=== PATIENT | female | born 1995 | race Caucasian/White ===

== ENCOUNTER → 2020-04-29 16:37 | Outpatient (CLI) | payer OTHER, MEDICAID, SELFPAY ==
[2020-05-01 00:56] LABS: COVID19 Sendout Not Detected (Not Detect)
== END ==
PROVIDERS: PCP Family Medicine; Visit Provider Physician Assistant
DX: Z11.59 Encounter for screening for other viral diseases (principal)
CPT/HCPCS: 87635

== ENCOUNTER → 2020-06-14 12:05 | Outpatient (CLI) | payer OTHER, MEDICAID, SELFPAY ==
--- NOTE | 2020-06-14 | DI.US.S_ITS ---
PROCEDURE: US PELVIC COMPLETE INDICATIONS: PAIN; HX PCOS TECHNIQUE: Real-time scanning was performed of the pelvic organs, with image documentation. Additional endovaginal scanning was necessary due to incomplete visualization of the adnexal and endometrial structures by transabdominal scanning. COMPARISON: None. FINDINGS: Transabdominal scanning: Limited scanning through the kidneys shows no hydronephrosis. No pathologic free abdominal or pelvic fluid. Endovaginal scanning: Uterus: Uterus is normal in size at 7.7 x 4.0 x 4.9 cm. The endometrium measures 21 mm in combined thickness. Ovaries: Right ovary measures 3.7 x 1.9 x 2.1 cm and the left 3.5 x 4.4 x 4.3 cm. There are 2 thick wall complex left ovarian cysts largest measuring 2.4 x 1.5 x 2.5 cm and the smaller 1.6 x 1.2 x 2.1 cm. IMPRESSION: 1. Endometrial complex is thickened measuring up to 21 mm. Short-term follow-up pelvic ultrasound in 6-12 weeks is recommended to assess for interval thinning. 2. Probable hemorrhagic cyst involving the left ovary which also can be reassessed on follow-up examination. Dictated by: Pelon Candelaria [facility] Interpreted: Shilpa Guzmán MD on 06/14/2020 at 15:03 Approved by: Shilpa Guzmán M.D. on 06/14/2020 at 15:30
== END ==
PROVIDERS: PCP Family Medicine; Referring Provider Physician Assistant; Visit Provider Physician Assistant
DX: E28.2 Polycystic ovarian syndrome (principal); N94.6 Dysmenorrhea, unspecified; R93.89 Abnormal findings on diagnostic imaging of other specified body structures
CPT/HCPCS: 76830; 76856

== ENCOUNTER 2020-06-17 16:29 | Observation (INO) | payer OTHER, MEDICAID, SELFPAY ==
[2020-06-17] VITALS (8 sets, daily range): BP systolic 102–134; BP diastolic 50–79; PULSE 70–101; RESP 16; TEMP 36.2–36.4; O2SAT 96–98; BMI 30.2
--- NOTE | 2020-06-17 18:11 | DI.US.S_ITS ---
PROCEDURE: US PELVIC COMPLETE INDICATIONS: POSITIVE HCG; BLEEDING, PAIN TECHNIQUE: Real-time scanning was performed of the pelvic organs, with image documentation. Additional endovaginal scanning was necessary due to incomplete visualization of the adnexal and endometrial structures by transabdominal scanning. COMPARISON: [facility], US, US PELVIC COMPLETE, 06/14/2020, 12:28. FINDINGS: Transabdominal scanning: Limited scanning through the kidneys shows no hydronephrosis. No pathologic free abdominal or pelvic fluid. No endometrial mass is seen. No intrauterine gestational sac is noted. Endovaginal scanning: Uterus: Uterus is normal in size at 8.4 x 3.7 x 4.7 cm. The endometrium measures 9.3 mm in combined thickness. Ovaries: Right ovary measures 3.1 x 2 x 2.6 cm in size. Left ovary measures 6.2 x 3.8 x 3.7 cm in size. Previously described thick-walled complex left ovarian cysts not appears as 1 complex cystic lesion and measures 5.8 x 2.6 x 3.3 cm in size. No internal vascularity is noted. Minimal amount of free fluid is seen adjacent to left ovary. IMPRESSION: 1. No evidence of intrauterine gestation. No endometrial mass or fluid. 2. 5.8 x 2.6 x 3.3 cm complex hypoechoic structure within/adjacent to left ovary with trace amount of adjacent fluid. No internal vascularity is seen. Finding could represent large blood clot. Ectopic is not definitively excluded. Follow-up with beta hCG levels and follow-up ultrasound is recommended. Dictated by: Ismael Hobbs M.D. on 06/17/2020 at 19:39 Approved by: Ismael Hobbs M.D. on 06/17/2020 at 19:44
[2020-06-17 18:14] LABS: Amorphous Sediment Urine 1+; Bacteria Urine Occasional (0-1); Culture Indicated Urine Cult Not Indicated; Mucus Urine 2+ (Negative); RBC Urine 1-5/HPF (0-5/HPF); Squamous Epithelial Cell Urine 1-5 /HPF (0-5/HPF); WBC Urine 1-5/HPF (0-5/HPF)
[2020-06-17 18:33] LABS: Add Manual Diff / Slide Review NO; Basophils Absolute Auto 100 /uL (0-100); Basophils Percent Auto 0.7 % (0-2); Eosinophils Absolute Auto 300 /uL (0-450); Eosinophils Percent Auto 2.3 % (2-4); Hematocrit 39.2 % (36-46); Hemoglobin 13.1 g/dL (12.0-16.0); Lymphocytes Absolute Auto 3100 /uL (1100-4500); Lymphocytes Percent Auto 20.8 % (25-40); Mean Corpuscular HGB Conc 33.3 % (30-36); Mean Corpuscular Hemoglobin 30.6 PG (26-34); Mean Corpuscular Volume 92.1 fL (80-100); Monocytes Absolute Auto 800 /uL (0-900); Monocytes Percent Auto 5.6 % (3-14); Neutrophils Absolute Auto 10700 /uL (1500-7000); Neutrophils Percent Auto 70.6 % (50-75); Platelet Count 328 X10^3/uL (150-400); Red Blood Cell Count 4.26 X10^6/uL (4.0-5.2); Red Cell Distribution Width 12.8 % (11.6-14.8); White Blood Cell Count 15.2 X10^3/uL (4.5-11.0)
[2020-06-17 18:55] LABS: Prothrombin Time 11.7 SECONDS (10.1-12.7)
--- NOTE | 2020-06-17 18:56 | ED_ITS ---
HPI - <ARAVIND Sarabia - Last Filed: 06/17/20 20:42> General Chief complaint: Abdominal Pain Stated complaint: pelvic pain Time Seen by Provider: 06/17/20 17:50 Source: patient Mode of arrival: Ambulatory Limitations: no limitations History of Present Illness HPI Narrative: This is a 24 year old female, smoker, who has past medical history significant for PCOS presents to ED with chief complain of heavy vaginal bleeding and cramping discomfort. Patient was evaluated by her primary care clinic at [facility] on 06/02/2020 where had negative urine test and followed up with ultrasound at [facility] 3 days ago. Her primary care provider BENITA Marcus called to check up on the patient and informed that the urine lining appears to be thick and she may have ruptured ovarian cyst. Patient reports she had missed menstruation in May. Normal LMP was on 04/12/2020 and had vaginal bleeding started since 06/08/2020. Patient reports has been having cramping discomfort since 06/02/2020. Patient reports vaginal bleeding has been very heavy today and passed 2 large dollar size clots at 10:30 a.m. and 1:00 p.m. today. Patient reports has been changing tampon/pad every 30 minutes to an hour which was saturated. Patient denies chest pain, dyspnea, lighthead edness. Patient denies history of STIs or . Patient had negative home test at the end of May. Had another test which was positive after hours. When she was evaluated at the clinic on 06/02/2020, she was told test was negative. Patient has been taking ibuprofen for pain last 1 week. Patient drinks alcohol beverage socially smokes pot. Date of Last Menstrual Period: 06/08/20 Patient : Yes Related Data Home Medications Medication Instructions Recorded Confirmed No Known Home Medications 04/29/20 06/17/20 Allergies Allergy/AdvReac Type Severity Reaction Status Date / Time cefaclor [From [facility]] AdvReac hallucinati Verified 06/17/20 19:14 ons Review of Systems <ARAVIND Sarabia - Last Filed: 06/17/20 20:42> Review of Systems Narrative: General: Denies fever, chills, fatigue, malaise, sweats. HEENT: Denies sinus pain, ear pain, sore throat, difficulty swallowing, dizziness. Respiratory: Denies dyspnea, cough, wheezing, hemoptysis, sputum. Cardiovascular: Denies chest pain, palpitations, orthopnea, edema. Gastrointestinal: Denies nausea, vomiting, abdominal pain, diarrhea, constipation, melena. : See HPI Musculoskeletal: Denies weakness, joint pain or bony pain. Skin: Denies rash, skin lesions, or other. Neurologic: Denies weakness, headache, numbness, change in speech, confusion, seizures, incoordination. Psychiatric: No concerning psychosocial issues. 12-point review of systems is negative except for those stated above. PMFSH - <[facility] - Last Filed: 06/17/20 20:42> Past Medical History Medical history: Reports kidney stones Surgical history: Reports no surgical history [employer] history: Reports PCOS Date of Last Menstrual Period: 06/08/20 Patient : Yes Exam <[facility] Rodriguez[facility] - Last Filed: 06/17/20 20:42> Narrative Exam Narrative: GEN: Alert, oriented x 3, well appearing and nourished, and in no acute distress. Head: Normal cephalic, atraumatic. No scalp or temporal tenderness, palpable mass or rash. EYES: Pupils are equal, round, and reactive to light and accommodation. Extraocular muscles are intact bilaterally. There is no subconjunctival hemorrhage, exudate and sclera non-icteric. ENT: Hearing grossly intact. Airway patent. Neck: Trachea in midline. No JVD, non-tender without lymphadenopathy. No masses or thyroid megaly. Supple, non-tender and no meningeal signs. CARDIAC: Normal regular rate and rhythm without murmurs, gallops, or rubs. No chest wall tenderness. No peripheral edema, cyanosis or pallor. Capillary refill is less than 2 seconds. RESPIRATORY: Lungs are clear to auscultate bilaterally. No cough, wheezes, rales, or rhonchi. No stridor, respiratory distress, increase work of breathing, or accessary muscle used. ABD: Abdomen soft and non-distended. Left lower quadrant pain to palpate. No guarding or rebound tenderness to palpate. Bowel sounds are normal in all 4 quadrants. There is no palpable masses or organomegaly. EXT: Full painless ROM of all extremities with no loss of sensation, strength, effusion or edema. SKIN: Warm, dry, normal color for patient. No erythema, lesions or rash over visible areas. BACK: Nontender without deformity or crepitance. No flank tenderness. NEUROLOGICAL: Alert and oriented to place, time and person. Sensation and motor function intact bilaterally. No facial droops, dysphasia. PSYCHIATRIC: Good judgement and reason, without hallucinations, abnormal affect or abnormal behaviors during the examination. Patient is not suicidal. Initial Vital Signs Initial Vital Signs: Vital Signs Temperature 97.6 F 06/17/20 16:48 Pulse Rate 101 H 06/17/20 16:48 Respiratory Rate 16 06/17/20 16:48 Blood Pressure 134/79 06/17/20 16:48 Pulse Oximetry 98 06/17/20 16:48 External Female Exam: normal external appearance Speculum Exam - Vagina: normal appearance of the vagina, no lacerations, no lesions, vaginal bleeding (Dark color vaginal bleeding) and No tissue present in vagina Speculum Exam - Cervix: normal appearance of the cervix, closed and no masses Bimanual Exam- Vagina & Uterus: no cervical motion tenderness Bimanual Exam- Adnexa, other: tender on the left OB/External & Speculum: no tissue noted in vagina and vaginal bleeding (Dark color vaginal bleeding) <Liam Diaz DO - Last Filed: 06/18/20 04:24> Initial Vital Signs Initial Vital Signs: Vital Signs Temperature 97.6 F 06/17/20 16:48 Pulse Rate 101 H 06/17/20 16:48 Respiratory Rate 16 06/17/20 16:48 Blood Pressure 134/79 06/17/20 16:48 Pulse Oximetry 98 06/17/20 16:48 Scores <ARAVIND Sarabia - Last Filed: 06/17/20 20:42> GCS Maxine coma scale eye opening: Spontaneous [place] coma scale verbal response: Orientated [place] coma scale motor response: Obey commands [place] coma scale total score: 15 qSOFA Altered Mental Status (GCS <15): No Respiratory rate greater than/equal to 22: No Systolic blood pressure less than or equal to 100: No qSOFA Total: 0 0-1 Not High Risk 1-3 High risk Course <ARAVIND Sarabia - Last Filed: 06/17/20 20:42> Orders Ordered: ED Orders 06/17/20 20:39 COVID19 Stat Acetaminophen (Acetaminophen 325 Mg Tablet) 650 mg PO Q6HR PRN PRN Reason: Fever/Mild Pain (1-3) Naloxone HCl (Naloxone 0.4 Mg/Ml Vial) 0.2 mg IV Q2MIN PRN PRN Reason: Opiate Reversal Ondansetron HCl (Ondansetron 4 Mg/2 Ml Inj) 4 mg IV Q8HR PRN PRN Reason: Nausea And Vomiting Oxycodone/Acetaminophen (Oxycodone/Acetaminophen 5/325 Tablet) 1 tab PO Q4HR PRN PRN Reason: Pain, Moderate (4-6) Last Admin: 06/18/20 01:44 Dose: 1 tab Documented by: Admin: 06/17/20 22:53 Dose: 1 tab Documented by: VINAY Sodium Chloride (Sodium Chloride 0.9% Flush) 10 ml IV BID LYNETTE Sodium Chloride (Sodium Chloride 0.9% Flush) 10 ml IV PRN PRN PRN Reason: Flush Discontinued Medications Hydromorphone HCl (Hydromorphone 0.5 Mg Inj) 0.5 mg IV NOW ONE Stop: 06/17/20 19:13 Last Admin: 06/17/20 19:18 Dose: 0.5 mg Documented by: MELCHOR Ondansetron HCl (Ondansetron 4 Mg/2 Ml Inj) 4 mg IV NOW ONE Stop: 06/17/20 19:13 Last Admin: 06/17/20 19:18 Dose: 4 mg Documented by: MELCHOR Reevaluation(s) Reevaluation #1: Patient reports pain moderately improved and rates as 2 to 3/10 in left lower quadrant intermittent. Time: 20:16 Consultations Consultation #1: Dr. Purdy consulted concerned for ectopic . Findings from physical exam, vital signs, labs, ultrasound results shared with Dr. Purdy. Waiting to hear back from Dr. Purdy after reviewing findings with Dr. Lr. Time: 20:15 Consultation #2: Dr. Purdy called back to inform to keep the patient under observation to monitor hemodynamically and to repeat blood test tomorrow for possible ectopic considering patient lives in [facility]. Time: 20:24 Vital Signs Vital signs: Vital Signs - 8 hr 06/17/20 20:30 Pulse Rate 73 Blood Pressure 104/56 L Pulse Oximetry 98 <Liam Diaz DO - Last Filed: 06/18/20 04:24> Orders Ordered: ED Orders 06/17/20 20:39 COVID19 Stat Acetaminophen (Acetaminophen 325 Mg Tablet) 650 mg PO Q6HR PRN PRN Reason: Fever/Mild Pain (1-3) Naloxone HCl (Naloxone 0.4 Mg/Ml Vial) 0.2 mg IV Q2MIN PRN PRN Reason: Opiate Reversal Ondansetron HCl (Ondansetron 4 Mg/2 Ml Inj) 4 mg IV Q8HR PRN PRN Reason: Nausea And Vomiting Oxycodone/Acetaminophen (Oxycodone/Acetaminophen 5/325 Tablet) 1 tab PO Q4HR PRN PRN Reason: Pain, Moderate (4-6) Last Admin: 06/18/20 01:44 Dose: 1 tab Documented by: Admin: 06/17/20 22:53 Dose: 1 tab Documented by: VINAY Sodium Chloride (Sodium Chloride 0.9% Flush) 10 ml IV BID LYNETTE Sodium Chloride (Sodium Chloride 0.9% Flush) 10 ml IV PRN PRN PRN Reason: Flush Discontinued Medications Hydromorphone HCl (Hydromorphone 0.5 Mg Inj) 0.5 mg IV NOW ONE Stop: 06/17/20 19:13 Last Admin: 06/17/20 19:18 Dose: 0.5 mg Documented by: MELCHOR Ondansetron HCl (Ondansetron 4 Mg/2 Ml Inj) 4 mg IV NOW ONE Stop: 06/17/20 19:13 Last Admin: 06/17/20 19:18 Dose: 4 mg Documented by: MELCHOR Vital Signs Vital signs: Vital Signs - 8 hr 06/17/20 20:30 Pulse Rate 73 Blood Pressure 104/56 L Pulse Oximetry 98 MDM - OB/Uterine Contractions <ARAVIND Sarabia - Last Filed: 06/17/20 20:42> Differential Diagnosis Differential diagnosis: Likely other (Ovarian cyst, ectopic , PID, ovarian torsion) Medical Records Attestation: I reviewed the patient's medical records. Lab Data Attestation: I reviewed the patient's lab results. Result diagrams: 06/17/20 18:22 06/17/20 18:22 Labs: Lab Results 06/17/20 06/17/20 06/17/20 Range/Units 17:50 18:22 18:22 WBC 15.2 H (4.5-11.0) X10^3/uL RBC 4.26 (4.0-5.2) X10^6/uL Hgb 13.1 (12.0-16.0) g/dL Hct 39.2 (36-46) % MCV 92.1 (80-100) fL MCH 30.6 (26-34) PG MCHC 33.3 (30-36) % RDW 12.8 (11.6-14.8) % Plt Count 328 (150-400) X10^3/uL Neut % (Auto) 70.6 (50-75) % Lymph % (Auto) 20.8 L (25-40) % [place] % (Auto) 5.6 (3-14) % Eos % (Auto) 2.3 (2-4) % Baso % (Auto) 0.7 (0-2) % Neut # (Auto) 10396 H (9897-7701) /uL Lymph # (Auto) 3100 (8200-6888) /uL [place] # (Auto) 800 (0-900) /uL Eos # (Auto) 300 (0-450) /uL Baso # (Auto) 100 (0-100) /uL PT (10.1-12.7) SECONDS INR (0.9-1.3) APTT (26.4-36.2) SECONDS Sodium 138 (137-145) mmol/L Potassium 3.9 (3.4-5.1) mmol/L Chloride 107 (98-107) mmol/L Carbon Dioxide 28 (22-32) mmol/L BUN 15 (7-17) mg/dL Creatinine 0.74 (0.52-1.04) mg/dL Estimated GFR > 60.0 (>60) mL/min BUN/Creatinine Ratio 20.3 (6-22) Glucose 109 H (70-100) mg/dL Calcium 9.3 (8.4-10.2) mg/dL Total Bilirubin 0.3 (0.2-1.3) mg/dL AST 25 (14-36) IU/L ALT 17 (<35) IU/L Alkaline Phosphatase 47 (38-126) U/L Total Protein 6.9 (6.3-8.2) g/dL Albumin 4.2 (3.5-5.0) g/dL Globulin 2.7 (1.7-4.1) g/dL Albumin/Globulin Ratio 1.6 (1.0-2.8) HCG, Quant 953.5 mIU/mL Urine RBC 1-5/hpf (0-5/HPF) Urine WBC 1-5/hpf (0-5/HPF) Ur Squamous Epith Cells 1-5 /hpf (0-5/HPF) Amorphous Sediment 1+ Urine Bacteria Occasional (0-1) (None) Urine Mucus 2+ H (Negative) Ur Culture Indicated? Cult not indicated Blood Type 06/17/20 06/17/20 Range/Units 18:22 18:22 WBC (4.5-11.0) X10^3/uL RBC (4.0-5.2) X10^6/uL Hgb (12.0-16.0) g/dL Hct (36-46) % MCV (80-100) fL MCH (26-34) PG MCHC (30-36) % RDW (11.6-14.8) % Plt Count (150-400) X10^3/uL Neut % (Auto) (50-75) % Lymph % (Auto) (25-40) % [place] % (Auto) (3-14) % Eos % (Auto) (2-4) % Baso % (Auto) (0-2) % Neut # (Auto) (7965-8333) /uL Lymph # (Auto) (0181-5359) /uL [place] # (Auto) (0-900) /uL Eos # (Auto) (0-450) /uL Baso # (Auto) (0-100) /uL PT 11.7 (10.1-12.7) SECONDS INR 1.0 (0.9-1.3) APTT 28 (26.4-36.2) SECONDS Sodium (137-145) mmol/L Potassium (3.4-5.1) mmol/L Chloride (98-107) mmol/L Carbon Dioxide (22-32) mmol/L BUN (7-17) mg/dL Creatinine (0.52-1.04) mg/dL Estimated GFR (>60) mL/min BUN/Creatinine Ratio (6-22) Glucose (70-100) mg/dL Calcium (8.4-10.2) mg/dL Total Bilirubin (0.2-1.3) mg/dL AST (14-36) IU/L ALT (<35) IU/L Alkaline Phosphatase (38-126) U/L Total Protein (6.3-8.2) g/dL Albumin (3.5-5.0) g/dL Globulin (1.7-4.1) g/dL Albumin/Globulin Ratio (1.0-2.8) HCG, Quant mIU/mL Urine RBC (0-5/HPF) Urine WBC (0-5/HPF) Ur Squamous Epith Cells (0-5/HPF) Amorphous Sediment Urine Bacteria (None) Urine Mucus (Negative) Ur Culture Indicated? Blood Type B Positive Point of Care Testing Test Results Positive Urine Dip Bedside Urine Glucose Negative Bedside Urine Bilirubin + 1 Bedside Urine Ketone +/- 5 Urine Specific [place] 1.030 Bedside Urine Occult Blood +++ Bedside Urine pH 6 Bedside Urine Protein + 30 Bedside Urine Urobilinogen +/- 1mg Bedside Urine Nitrite - Negative Bedside Urine Leukocytes - Negative Esterase Imaging Data US - OB: Radiologist's Impression: [address] [id number] ReportSigned Patient: Linda Garcia [facility]#: [id number]: 1995Acct:[id number]/Sex: 24 / FDate of Service: 06/17/20Loc: EDAccession Number: [id number] Procedure: US pelvic complete Ordering Provider: Abhilash Marquez PROCEDURE: US PELVIC COMPLETE INDICATIONS: POSITIVE HCG; BLEEDING, PAIN TECHNIQUE: Real-time scanning was performed of the pelvic organs, with image documentation. Additional endovaginal scanning was necessary due to incomplete visualization of the adnexal and endometrial structures by transabdominal scanning. COMPARISON: [facility], US PELVIC COMPLETE, 06/14/2020, 12:28. FINDINGS: Transabdominal scanning: Limited scanning through the kidneys shows no hydronephrosis. No pathologic free abdominal or pelvic fluid. No endometrial mass is seen. No intrauterine gestational sac is noted. Endovaginal scanning: Uterus: Uterus is normal in size at 8.4 x 3.7 x 4.7 cm. The endometrium measures 9.3 mm in combined thickness. Ovaries: Right ovary measures 3.1 x 2 x 2.6 cm in size. Left ovary measures 6.2 x 3.8 x 3.7 cm in size. Previously described thick-walled complex left ovarian cysts not appears as 1 complex cystic lesion and measures 5.8 x 2.6 x 3.3 cm in size. No internal vascularity is noted. Minimal amount of free fluid is seen adjacent to left ovary. IMPRESSION: 1. No evidence of intrauterine gestation. No endometrial mass or fluid. 2. 5.8 x 2.6 x 3.3 cm complex hypoechoic structure within/adjacent to left ovary with trace amount of adjacent fluid. No internal vascularity is seen. Finding could represent large blood clot. Ectopic is not definitively excluded. Follow-up with beta hCG levels and follow-up ultrasound is recommended. Dictated by: Ismael Hobbs M.D. on 06/17/2020 at 19:39 Approved by: Ismael Hobbs M.D. on 06/17/2020 at 19:44 MDM Narrative Medical decision making narrative: This is a 24-year-old female who presents to ED with left lower quadrant cramping pain and heavy vaginal bleeding with positive urine test in ED. patient reports normal LMP was 04/12/2020 and had started menstruation on 06/08/2020 which became heavy with clots today. Patient has been changing regular absorption tampon every 30 minutes to 1 hour today and had 2 large clots earlier today. Patient denies chest pain, dyspnea, lightheadedness, fever, chills, vomiting. She had intermittent nausea. No signs of UTI with negative urine nitrites and leukoesterase. There are large am ount of blood shown in urine. Physical exam was tender to palpate in left lower quadrant without cervical motion tenderness and dark blood in vaginal vault. Within normal limits of vital signs of heart rate in 80s and normal tensive. Unclear reasons for elevated WBC to 15.2. Ultrasound was repeated tonight. It shows slightly increased left ovary from 2 days ago and measures as 6.2 x 3.8 x 3.7 cm today. The left ovary 2 days ago measured as 3.5 x 4.4 x 4.3 cm and 2 thick wall complex left ovarian cysts. Endometrium thickness measures 9.3 mm in combined thickness today from 21 mm 2 days ago. There is trace amount of [place] fluid in left ovary. No evidence of IUP at this time. Today's ultrasound findings concerned for ectopic or large blood clot. Dr. Purdy consulted over the phone and she kindly accepted patient's care under observation to monitor overnight with repeat blood tests tomorrow to rule out ectopic . COVID test has been ordered and pending. <Liam Diaz DO - Last Filed: 06/18/20 04:24> Lab Data Labs: Lab Results 06/17/20 06/17/20 06/17/20 Range/Units 17:50 18:22 18:22 WBC 15.2 H (4.5-11.0) X10^3/uL RBC 4.26 (4.0-5.2) X10^6/uL Hgb 13.1 (12.0-16.0) g/dL Hct 39.2 (36-46) % MCV 92.1 (80-100) fL MCH 30.6 (26-34) PG MCHC 33.3 (30-36) % RDW 12.8 (11.6-14.8) % Plt Count 328 (150-400) X10^3/uL Neut % (Auto) 70.6 (50-75) % Lymph % (Auto) 20.8 L (25-40) % [place] % (Auto) 5.6 (3-14) % Eos % (Auto) 2.3 (2-4) % Baso % (Auto) 0.7 (0-2) % Neut # (Auto) 64570 H (7715-1981) /uL Lymph # (Auto) 3100 (0164-5088) /uL [place] # (Auto) 800 (0-900) /uL Eos # (Auto) 300 (0-450) /uL Baso # (Auto) 100 (0-100) /uL PT (10.1-12.7) SECONDS INR (0.9-1.3) APTT (26.4-36.2) SECONDS Sodium 138 (137-145) mmol/L Potassium 3.9 (3.4-5.1) mmol/L Chloride 107 (98-107) mmol/L Carbon Dioxide 28 (22-32) mmol/L BUN 15 (7-17) mg/dL Creatinine 0.74 (0.52-1.04) mg/dL Estimated GFR > 60.0 (>60) mL/min BUN/Creatinine Ratio 20.3 (6-22) Glucose 109 H (70-100) mg/dL Calcium 9.3 (8.4-10.2) mg/dL Total Bilirubin 0.3 (0.2-1.3) mg/dL AST 25 (14-36) IU/L ALT 17 (<35) IU/L Alkaline Phosphatase 47 (38-126) U/L Total Protein 6.9 (6.3-8.2) g/dL Albumin 4.2 (3.5-5.0) g/dL Globulin 2.7 (1.7-4.1) g/dL Albumin/Globulin Ratio 1.6 (1.0-2.8) HCG, Quant 953.5 mIU/mL Urine RBC 1-5/hpf (0-5/HPF) Urine WBC 1-5/hpf (0-5/HPF) Ur Squamous Epith Cells 1-5 /hpf (0-5/HPF) Amorphous Sediment 1+ Urine Bacteria Occasional (0-1) (None) Urine Mucus 2+ H (Negative) Ur Culture Indicated? Cult not indicated Blood Type 06/17/20 06/17/20 Range/Units 18:22 18:22 WBC (4.5-11.0) X10^3/uL RBC (4.0-5.2) X10^6/uL Hgb (12.0-16.0) g/dL Hct (36-46) % MCV (80-100) fL MCH (26-34) PG MCHC (30-36) % RDW (11.6-14.8) % Plt Count (150-400) X10^3/uL Neut % (Auto) (50-75) % Lymph % (Auto) (25-40) % [place] % (Auto) (3-14) % Eos % (Auto) (2-4) % Baso % (Auto) (0-2) % Neut # (Auto) (5363-4832) /uL Lymph # (Auto) (2559-6567) /uL [place] # (Auto) (0-900) /uL Eos # (Auto) (0-450) /uL Baso # (Auto) (0-100) /uL PT 11.7 (10.1-12.7) SECONDS INR 1.0 (0.9-1.3) APTT 28 (26.4-36.2) SECONDS Sodium (137-145) mmol/L Potassium (3.4-5.1) mmol/L Chloride (98-107) mmol/L Carbon Dioxide (22-32) mmol/L BUN (7-17) mg/dL Creatinine (0.52-1.04) mg/dL Estimated GFR (>60) mL/min BUN/Creatinine Ratio (6-22) Glucose (70-100) mg/dL Calcium (8.4-10.2) mg/dL Total Bilirubin (0.2-1.3) mg/dL AST (14-36) IU/L ALT (<35) IU/L Alkaline Phosphatase (38-126) U/L Total Protein (6.3-8.2) g/dL Albumin (3.5-5.0) g/dL Globulin (1.7-4.1) g/dL Albumin/Globulin Ratio (1.0-2.8) HCG, Quant mIU/mL Urine RBC (0-5/HPF) Urine WBC (0-5/HPF) Ur Squamous Epith Cells (0-5/HPF) Amorphous Sediment Urine Bacteria (None) Urine Mucus (Negative) Ur Culture Indicated? Blood Type B Positive Point of Care Testing Test Results Positive Urine Dip Bedside Urine Glucose Negative Bedside Urine Bilirubin + 1 Bedside Urine Ketone +/- 5 Urine Specific [place] 1.030 Bedside Urine Occult Blood +++ Bedside Urine pH 6 Bedside Urine Protein + 30 Bedside Urine Urobilinogen +/- 1mg Bedside Urine Nitrite - Negative Bedside Urine Leukocytes - Negative Esterase Discharge Plan Departure Patient Disposition: Admitted as Observation Clinical Impression: Abdominal pain during in first trimester, Vaginal bleeding in patient at less than 20 weeks gestation Admit Date/Time: 06/17/20 20:30 Admit Provider: Betsy Purdy <Liam Diaz DO - Last Filed: 06/18/20 04:24> Cosign ED Attending Cosignature Attestation: I was immediately available in the department for consultation. This documentation has been reviewed and I agree with assessment and plan. Supervised by Liam Diaz DO
[2020-06-17 18:57] LABS: PTT Partial Thromboplastin Tim 28 SECONDS (26.4-36.2)
[2020-06-17 18:59] LABS: Alanine Aminotransferase 17 IU/L (<35); Albumin 4.2 g/dL (3.5-5.0); Albumin Globulin Ratio 1.6 (1.0-2.8); Alkaline Phosphatase 47 U/L (38-126); Aspartate Aminotransferase 25 IU/L (14-36); BUN Creatinine Ratio 20.3 (6-22); Bilirubin Total 0.3 mg/dL (0.2-1.3); Blood Urea Nitrogen 15 mg/dL (7-17); Calcium 9.3 mg/dL (8.4-10.2); Carbon Dioxide 28 mmol/L (22-32); Chloride 107 mmol/L (98-107); Estimated Glomerular Filt Rate > 60.0 mL/min (>60); Globulin 2.7 g/dL (1.7-4.1); Glucose 109 mg/dL (70-100); HEMOLYSIS 18 (0-50); Potassium 3.9 mmol/L (3.4-5.1); Sodium 138 mmol/L (137-145); Total Protein 6.9 g/dL (6.3-8.2)
[2020-06-17 19:16] LABS: HCG Quantitative /Beta subunit 953.5 mIU/mL
[2020-06-17] MEDS: HYDROMORPHONE 0.5 MG INJ IV (19:18)
[2020-06-17] MEDS: ONDANSETRON 4 MG/2 ML INJ IV (19:18)
[2020-06-17 21:01] LABS: COVID19 -Nasal RAPID Negative (Negative)
[2020-06-17] MEDS: OXYCODONE/ACETAMINOPHEN 5/325 TABLET 1 TAB PO (22:53)
[2020-06-18] VITALS: BP 102/64; PULSE 69; RESP 16; TEMP 36.4
[2020-06-18] MEDS: OXYCODONE/ACETAMINOPHEN 5/325 TABLET 1 TAB PO ×4 (01:44→14:08)
[2020-06-18 05:58] VITALS: BP 108/53; PULSE 74; RESP 16; TEMP 37.1; O2SAT 98
[2020-06-18 06:23] LABS: HCG Quantitative /Beta subunit 1001.8 mIU/mL
--- NOTE | 2020-06-18 09:33 | DI.US.S_ITS ---
PROCEDURE: US PELVIC COMPLETE INDICATIONS: PRE-OP TECHNIQUE: Real-time scanning was performed of the pelvic organs, with image documentation. Additional endovaginal scanning was necessary due to incomplete visualization of the adnexal and endometrial structures by transabdominal scanning. COMPARISON: [facility], , US PELVIC COMPLETE, 06/17/2020, 18:45. FINDINGS: Transabdominal and endovaginal ultrasound was performed. The uterus is anteverted measuring 7.7 x 4.0 x 5.0 centimeters. Endometrial thickness is 1.2 millimeters. There is no evidence of an intrauterine . Uterine echotexture is normal. The cervix is within normal limits. The right ovary measures 3.7 x 2.1 x 2.2 centimeters. The left ovary measures 5.9 x 3.6 x 4.8 centimeters. There is an irregular solid mass measuring 6.3 x 2.8 x 3.1 centimeters compared to 5.8 x 2.6 x 3.3 centimeters on the prior ultrasound yesterday. Differential diagnosis includes a hematoma versus ectopic . There is minimally increasing free fluid in the anterior and posterior cul-de-sac. IMPRESSION: 1. Irregular solid mass, likely a hematoma and/or ectopic is relatively unchanged compared to yesterday. 2. Minimally increasing free fluid in the anterior and posterior cul-de-sac. Dictated by: Napoleon Ni M.D. on 06/18/2020 at 12:12 Approved by: Napoleon Ni M.D. on 06/18/2020 at 12:18
[2020-06-18] MEDS: ACETAMINOPHEN 325 MG TABLET 650 MG PO (09:45)
[2020-06-18] MEDS: SODIUM CHLORIDE 0.9% FLUSH 10 ML IV (09:46)
--- NOTE | 2020-06-18 09:57 | PM.HP.1 ---
History of Present Illness History of Present Illness Date Patient Seen: 06/18/20 Time Patient Seen: 09:58 Chief complaint: pelvic pain Narrative: Patient is a 24-year-old 1 para 0 who presented to the emergency department last evening with left lower quadrant pain and vaginal bleeding. Patient had a known . Initially she was thought to have a hemorrhagic corpus luteal cyst on the left, but last night's ultrasound was more worrisome for an ectopic . Patient History Medical History (Updated 06/18/20 @ 10:00 by Liyah Lr MD) PCOS (polycystic ovarian syndrome) Family & Social History Social History: household members friend(s) Prior Living Arrangements Apartment/Condo Safety & Behavioral: Feels Safe in Current Yes Environment Been Physically Hurt or No Threatened By a Person Suicidal Ideation Description None Suicide Plan Description No Plan Tobacco & Substance use: Smoking Status Current every day smoker alcohol intake current alcohol intake frequency a few times a month Substance Use Type marijuana Meds Home Medications and Allergies Home Medications Medication Instructions Recorded Confirmed Type No Known Home Medications 04/29/20 06/17/20 History Allergies Allergy/AdvReac Type Severity Reaction Status Date / Time cefaclor [From Ceclor] AdvReac hallucinati Verified 06/17/20 19:14 ons Exam Vital Signs (past 8 hours): - 06/18/20 05:58 Temperature 98.7 F Pulse Rate 74 Respiratory Rate 16 Blood Pressure 108/53 L Pulse Oximetry 98 Oxygen Delivery Method Room Air Oxygen Flow Rate 0 Narrative Exam Narrative: Generally: Patient is sitting up in bed, moderately distressed due to possibility of losing this Lungs: Clear to auscultation bilaterally Cardiovascular: Regular rate and rhythm Abdomen: Soft, slight guarding on the left side. No rebound tenderness. Pelvic exam: Deferred Ultrasound: 1. No evidence of intrauterine gestation. No endometrial mass or fluid. 2. 5.8 x 2.6 x 3.3 cm complex hypoechoic structure within/adjacent to left ovary with trace amount of adjacent fluid. No internal vascularity is seen. Finding could represent large blood clot. Ectopic is not definitively excluded. Objective Labs Result Diagrams: 06/17/20 18:22 06/17/20 18:22 Labs: Laboratory Results - last 24 hr 06/17/20 06/17/20 06/17/20 17:50 18:22 18:22 WBC 15.2 H RBC 4.26 Hgb 13.1 Hct 39.2 MCV 92.1 MCH 30.6 MCHC 33.3 RDW 12.8 Plt Count 328 Neut % (Auto) 70.6 Lymph % (Auto) 20.8 L [place] % (Auto) 5.6 Eos % (Auto) 2.3 Baso % (Auto) 0.7 Neut # (Auto) 19646 H Lymph # (Auto) 3100 [place] # (Auto) 800 Eos # (Auto) 300 Baso # (Auto) 100 PT INR APTT Sodium 138 Potassium 3.9 Chloride 107 Carbon Dioxide 28 BUN 15 Creatinine 0.74 Estimated GFR > 60.0 BUN/Creatinine Ratio 20.3 Glucose 109 H Calcium 9.3 Total Bilirubin 0.3 AST 25 ALT 17 Alkaline Phosphatase 47 Total Protein 6.9 Albumin 4.2 Globulin 2.7 Albumin/Globulin Ratio 1.6 HCG, Quant 953.5 Urine RBC 1-5/hpf Urine WBC 1-5/hpf Ur Squamous Epith Cells 1-5 /hpf Amorphous Sediment 1+ Urine Bacteria Occasional (0-1) Urine Mucus 2+ H Ur Culture Indicated? Cult not indicated COVID-19 PCR Blood Type 06/17/20 06/17/20 06/17/20 18:22 18:22 20:39 WBC RBC Hgb Hct MCV MCH MCHC RDW Plt Count Neut % (Auto) Lymph % (Auto) [place] % (Auto) Eos % (Auto) Baso % (Auto) Neut # (Auto) Lymph # (Auto) [place] # (Auto) Eos # (Auto) Baso # (Auto) PT 11.7 INR 1.0 APTT 28 Sodium Potassium Chloride Carbon Dioxide BUN Creatinine Estimated GFR BUN/Creatinine Ratio Glucose Calcium Total Bilirubin AST ALT Alkaline Phosphatase Total Protein Albumin Globulin Albumin/Globulin Ratio HCG, Quant Urine RBC Urine WBC Ur Squamous Epith Cells Amorphous Sediment Urine Bacteria Urine Mucus Ur Culture Indicated? COVID-19 PCR Negative Blood Type B Positive 06/18/20 05:05 WBC RBC Hgb Hct MCV MCH MCHC RDW Plt Count Neut % (Auto) Lymph % (Auto) [place] % (Auto) Eos % (Auto) Baso % (Auto) Neut # (Auto) Lymph # (Auto) [place] # (Auto) Eos # (Auto) Baso # (Auto) PT INR APTT Sodium Potassium Chloride Carbon Dioxide BUN Creatinine Estimated GFR BUN/Creatinine Ratio Glucose Calcium Total Bilirubin AST ALT Alkaline Phosphatase Total Protein Albumin Globulin Albumin/Globulin Ratio HCG, Quant 1001.8 Urine RBC Urine WBC Ur Squamous Epith Cells Amorphous Sediment Urine Bacteria Urine Mucus Ur Culture Indicated? COVID-19 PCR Blood Type Assessment & Plan Assessment & Plan narrative: Assessment: 24-year-old 1 para 0 with a possible left ectopic Highly desired History of PCOS Plan: Repeat ultrasound this morning Decide between surgery versus methotrexate if it appears to be an ectopic Time Spent With Patient Time with patient: 15-24 minutes Quality VTE Deep Vein Thrombosis/Pulmonary Embolism Present on Admission: No
--- NOTE | 2020-06-18 10:38 | CM.DANOTE ---
DCP; Case received, EMR reviewed. Briefly checked on patient, introduced self and role. Patient crying, stated, she did not want to talk at this time, she was on her phone. DCP assessment completed based on information available in EMR. Patient is a 24 year old female who admitted yesterday evening to the care of the hospitalist team. PCP: Dr. Norris. Payer: confirmed: [facility]/Medicaid. Patient came to the hospital via private vehicle secondary to having pelvic cramping, as well as increased vaginal bleeding. Patient had been evaluated on 06/02 at [facility] where she had a negative test. Patient had ultrasound ordered, and she is noted to have possible ectopic . Attempted to meet with patient, but teary, did not wish to talk now. According to notes, she resides on [address], she has a life partner named Isidro Sánchez, who has an [place] address. Patient is employed at [employer]. P: DCP to continue to follow, and will be available for any resources needed. Emi Devlin RN/Railroad Car Letterer
[2020-06-18 12:18] VITALS: BP 118/71; PULSE 90; RESP 17; TEMP 36.5; O2SAT 99
== END 2020-06-18 14:19 | disposition home or self-care (01) ==
LOC: ED 20:31 → AC 20:32
PROVIDERS: Admitting Provider Family Medicine; Emergency Provider Nurse Practitioner Family; PCP Family Medicine; Referring Provider Nurse Practitioner Family; Visit Provider Family Medicine
DX: O20.8 Other hemorrhage in early pregnancy (principal); R10.9 Unspecified abdominal pain; Z3A.01 Less than 8 weeks gestation of pregnancy; E28.2 Polycystic ovarian syndrome; F17.210 Nicotine dependence, cigarettes, uncomplicated; Z20.828 Contact with and (suspected) exposure to other viral communicable diseases
CPT/HCPCS: 36415; 76830; 76856; 80053; 81003; 81015; 81025; 84702; 85025; 85610; 85730; 86900; 86901; 87635; 96374; 96375; 99284; G0378; J1170; J2405

== ENCOUNTER → 2020-06-20 10:01 | Outpatient (CLI) | payer OTHER, MEDICAID, SELFPAY ==
[2020-06-17 21:13] VITALS: BMI 30.2
[2020-06-20 12:10] LABS: HCG Quantitative /Beta subunit 1206.1 mIU/mL
== END ==
PROVIDERS: PCP Family Medicine; Referring Provider Obstetrics & Gynecology; Visit Provider Obstetrics & Gynecology
DX: O00.90 Unspecified ectopic pregnancy without intrauterine pregnancy (principal)
CPT/HCPCS: 36415; 84702

== ENCOUNTER 2020-06-20 13:00 | Day surgery (SDC) | payer OTHER, MEDICAID, SELFPAY ==
[2020-06-17 21:13] VITALS: BMI 30.2
[2020-06-20] VITALS (18 sets, daily range): BP systolic 99–124; BP diastolic 48–73; PULSE 60–100; RESP 11–97; TEMP 36.2–36.9; O2SAT 14–100; BMI 30.9
--- NOTE | 2020-06-20 | PATH_ITS ---
[facility] Accession Number: [id number] . 01 Material submitted: . fallopian tube - LEFT FALLOPIAN TUBE WITH ECTOPIC . 02 Diagnosis: Left Fallopian Tube, Salpingectomy: Few chorionic villi present, consistent with ectopic gestation. Simple benign paratubal cysts. No evidence of neoplasm. MRV 06/22/2020 1309 Local . 02 Electronically signed: . Kartik Brown MD, PhD, Pathologist NPI- [id number] . 01 Gross description: . The specimen is received in formalin, labeled left fallopian tube with ectopic and consists of a 5.5 cm in length x up to 2.0 cm in diameter fallopian tube with a ruffin-pink smooth focally disrupted serosa and a 2.0 x 1.0 x 0.3 cm paratubal cyst. There is a 2.5 x 2.0 x 1.0 cm area of dilatation near the fimbria within the area of disruption. Sectioning reveals a ruffin-pink focally hemorrhagic mucosa and a lumen measuring up to 1.0 cm in diameter. There is no grossly visible chorionic villi within the area of dilation. Also, received are multiple red-brown fragments of clotted blood, measuring 6.0 x 5.0 x 3.0 cm in aggregate. Kitchenhand sections are submitted. . A1-A2 - Margin (en face) and area of dilation, entirely submitted. A3-A4 - Bisected fimbria. A5-A6 - Kitchenhand clotted blood. ([id number]) /[facility] 06/21/2020 1733 Local . 02 Pathologist provided ICD-10: O00.102 . 02 CPT . 495124 Performed at: 01 [facility] [address] [place] [address] [address], [place] [id number] MD Jose C Ramires MD Phone: [phone] Performed at: 02 [facility] [address] [place] [id number] MD Giselle Muhammad MD Phone: [phone]
[2020-06-20] MEDS: LACTATED RINGERS 1,000 ML 42 ML IV (13:45)
--- NOTE | 2020-06-20 14:25 | P.HP_ITS ---
History of Present Illness History of Present Illness Date Patient Seen: 06/20/20 Time Patient Seen: 14:25 [place] [facility] [place]: Patient is a 24-year-old 1 para 0 with a suspected left ectopic . Her beta HCG has gone from 950 on June 17, to 1000 on June 18. Today it has risen to 1200. She continues to have pain on the left side. Three ultrasounds have shown no intrauterine but increasing size of the mass in the left adnexa. Patient History Medical History (Updated 06/18/20 @ 10:00 by Liyah Lr MD) PCOS (polycystic ovarian syndrome) Family & Social History Social History: household members friend(s) Tobacco & Substance use: Smoking Status Current every day smoker alcohol intake current alcohol intake frequency a few times a month Substance Use Type marijuana Meds Home Medications and Allergies Home Medications Medication Instructions Recorded Confirmed Type No Known Home Medications 04/29/20 06/20/20 History oxycodone-acetaminophen [Percocet] 1 tab PO Q8H PRN #20 tab 06/18/20 06/20/20 Rx Allergies Allergy/AdvReac Type Severity Reaction Status Date / Time cefaclor [From Ceclor] AdvReac hallucinati Verified 06/20/20 13:34 ons Exam Vital Signs (past 8 hours): - 06/20/20 13:30 Temperature 98.1 F Pulse Rate 75 Respiratory Rate 11 L Blood Pressure 110/68 Pulse Oximetry 100 Oxygen Delivery Method Room Air Narrative Exam Narrative: HEENT: No thyromegaly, no anterior cervical or supraclavicular lymphadenopathy. Lungs:Clear to auscultation bilaterally, no wheezes. Cardiovascular: Regular rate and rhythm, no murmurs, rubs, or gallops. Abdomen: No scars. No hepatosplenomegaly. No masses palpable. Rebound tenderness on the left side. External genitalia: Normal Vagina: Normal Cervix: Nulliparous Bimanual exam: 7 Week size anteverted uterus. Mobile.] Left adnexal fullness and tenderness Rectal: No masses. Assessment & Plan Assessment & Plan narrative: Assessment: 24-year-old 1 para 0 with a suspected left ectopic Plan: Diagnostic laparoscopy with removal of the ectopic, possible left salpingectomy. If ectopic is certain, will proceed with suction D and C as well The risks, benefits, and alternatives to the procedure were explained to the patient. The risks including bleeding, infection, injury to the bowel, bladder, or ureters. She also understands there is a possibility of uterine perforation. She understands these risks and agrees to proceed. A full par Q was held and consent form was signed. Time Spent With Patient Time with patient: 15-24 minutes
--- NOTE | 2020-06-20 14:29 | PM.PREOP ---
Pre-operative Note COVID-19 COVID-19 status: Negative Result date/Date tested (Pos, Neg/Pending): 06/17/20 Interval Note History & Physical reviewed/Exam performed by Physician: Yes Changes to H&P: No H&P completed within 30 days and has changed as indicated here:: 06/20/2020
[2020-06-20] MEDS: ACETAMINOPHEN 325 MG TABLET 975 MG PO (14:41)
[2020-06-20] MEDS: SCOPOLAMINE 1 PATCH TOP (14:42)
--- NOTE | 2020-06-20 15:26 | SUR.OPER ---
Lithotomy on padded OR bed, head on pillow, arms secured at sides and padded with gel pads. Legs secured in padded yellow fins stirrups.
[2020-06-20] MEDS: BUPIVACAINE 0.5% W/ EPI (PF) 30 ML VIAL INJ (15:37)
[2020-06-20] MEDS: LACTATED RINGERS 1,000 ML 120 ML IV (16:38)
[2020-06-20] MEDS: fentaNYL 100 MCG/2 ML INJ IV ×4 (16:38→17:23)
[2020-06-20] MEDS: OXYCODONE IR 5 MG TABLET PO ×2 (17:02→18:55)
[2020-06-20] MEDS: LORazepam 2 MG/ML INJ 0.25 MG IV ×2 (17:08→17:35)
--- NOTE | 2020-06-20 17:22 | SUR.PHASEI ---
Pt emotional and upset d/t loss of baby and fallopian tube. Crying hysterically. Medicated for pain as noted. Allowed pt to call her boyfriend. As instructed by Dr Lr, attempted to reach her to let her know that the pt is awake and able to talk to her. Message left for Dr Lr on her cell phone and with her ict customer support officer. Pt's sister in the waiting room and will come into PACU once Dr Lr is here. Ativan given as noted with some response. Pt still crying, but not hysterical.
--- NOTE | 2020-06-20 17:37 | SUR.PHASEI ---
Sister to bedside. Dr Lr at bedside at 1738.
[2020-06-20] MEDS: HYDROMORPHONE 2 MG INJ IV ×2 (17:56→18:05)
--- NOTE | 2020-06-20 18:27 | PM.GYNOP.1 ---
Operative Date/Time/Diagnoses Date of procedure: 06/20/20 Time of procedure: 16:20 Pre-op diagnosis: Suspected left ectopic Post-op diagnosis: same Procedure & Clinicians Procedure: Procedures Operation Date: 06/20/20 14:00 Actual Procedures Side Surgeon p Laparoscopic left Salpingectomy with Ectopic Extraction/Suction D&C Liyah Lr MD Indications: Suspected left ectopic Vaginal bleeding Surgeon: Liyah Lr Anesthesia Type: General and Local Operative Notes Findings: Seven week size anteverted uterus Normal right ovary Right tube with small paratubal cysts close to the fimbriated end Normal left ovary Left tube with 6 cm x 2 cm ectopic with blood in tissue coming out the fimbriated end as well as rupture in 2 places 750 cc of blood in the pelvis and upper abdomen Normal liver and gallbladder Normal appendix Closure Type: primary Specimen(s): left tube (With ectopic) and uterine contents (Decidual reaction) Estimated blood loss (mL): 5 Blood products transfused: none Procedure in detail: After informed consent was obtained, the patient was taken to the operating room where she was placed in the dorsal supine position. After adequate general endotracheal anesthesia was achieved, she was placed in the dorsal lithotomy position, and prepped and draped in the usual sterile fashion. A time-out was performed. Is a moistened sponge stick was placed into the vagina. Attention was then turned to the abdomen where 6 cc of 0.5% Marcaine with epinephrine were injected in the umbilical fold. A 5 mm incision was made. The Veress needle was placed into the peritoneal cavity, and its placement confirmed by aspiration and drop test. The abdominal cavity was insufflated with 4.1 L of CO2. The Veress needle was removed, and a 5 mm trocar was placed without difficulty. The pelvis and abdomen were inspected with the findings noted above. Two other 5 mm incisions were made after 6 cc of 0.5% Marcaine with epinephrine were injected, 4 cm lateral to the midline at the level of the umbilicus. Two 5 mm trocars were placed under direct visualization. 6 cc with 0.5% Marcaine with epinephrine were injected above the pubic symphysis. A 1 cm incision was made. An 11 mm trocar was placed under direct visualization. Due to the damage of the left tube, a decision was made to perform a salpingectomy. A large amount of tissue and clot were removed from around the tube. This was placed into the anterior cul-de-sac. The left tube was grasped with an atraumatic grasper. The mesosalpinx was cauterized and cut all the way down to the cornua of the uterus. The tube was amputated at the cornua of the uterus. The tube with the ectopic was placed into the anterior cul-de-sac. The upper abdomen and right lower quadrant were examined with findings noted above. Hemostasis was achieved in the left adnexa. There was a small amount of clot and tissue adherent to the left ovary. This was cleaned off with irrigation. The upper abdomen was suctioned of a large amount of blood around the liver and diaphragm. The pelvis was copiously irrigated with normal saline. All of the blood was removed from the pelvis. Hemostasis was achieved. The instruments were removed from the abdomen. The CO2 was allowed to escape. The trocars were removed. The suprapubic incision was closed on the fascia with 0 Vicryl with a [id number] suture. All of the incisions were closed with 4-0 Biosyn in a subcuticular fashion. Steri-Strips,and Allevyn dressings were placed. Attention was then turned to the vagina where the moistened sponge stick was removed. A bivalve speculum was placed. A single-tooth tenaculum was placed on the anterior lip of the cervix. Cervical os was sequentially dilated to the # 8 Hegar dilator. The # 7 plastic curved curette passed easily into the endometrial cavity. Several passes with suction revealed a large amount of old blood and tissue. The single-tooth tenaculum was removed from the anterior lip of the cervix. The bivalve speculum was removed from the vagina. Sponge, lap, and instrument counts were correct x2. The patient tolerated the procedure well, and was taken to PACU in stable condition. Complications: none Post-operative Condition: stable Disposition: PACU Plan for aftercare: Home after recovery
--- NOTE | 2020-06-20 18:27 | SUR.PHASEI ---
Pt calm. Pain improving. VSS.
== END 2020-06-20 19:12 | disposition home or self-care (01) ==
PROVIDERS: PCP Family Medicine; Referring Provider Obstetrics & Gynecology; Visit Provider Obstetrics & Gynecology
PROC: (CPT 59151; principal; 2020-06-20 14:00)
DX: O00.102 Left tubal pregnancy without intrauterine pregnancy (principal); Z3A.00 Weeks of gestation of pregnancy not specified; F17.210 Nicotine dependence, cigarettes, uncomplicated; N83.8 Other noninflammatory disorders of ovary, fallopian tube and broad ligament
CPT/HCPCS: 59151; 59160; 36415; 84702; J0330; J1100; J1170; J1885; J2060; J2250; J2405; J2704; J3010

== ENCOUNTER → 2020-09-02 09:54 | Outpatient (CLI) | payer OTHER, MEDICAID, SELFPAY ==
[2020-06-17 21:13] VITALS: BMI 30.2
[2020-09-02 11:11] LABS: HCG Quantitative /Beta subunit 10.4 mIU/mL
== END ==
PROVIDERS: PCP Family Medicine; Referring Provider Obstetrics & Gynecology; Visit Provider Obstetrics & Gynecology
DX: Z32.01 Encounter for pregnancy test, result positive (principal)
CPT/HCPCS: 36415; 84702

== ENCOUNTER → 2020-09-05 13:17 | Outpatient (CLI) | payer OTHER, MEDICAID, SELFPAY ==
[2020-06-17 21:13] VITALS: BMI 30.2
[2020-09-05 16:43] LABS: HCG Quantitative /Beta subunit 2.5 mIU/mL
== END ==
PROVIDERS: PCP Family Medicine; Referring Provider Obstetrics & Gynecology; Visit Provider Obstetrics & Gynecology
DX: Z87.59 Personal history of other complications of pregnancy, childbirth and the puerperium (principal)
CPT/HCPCS: 36415; 84702

== ENCOUNTER → 2020-09-12 09:36 | Outpatient (CLI) | payer OTHER, MEDICAID, SELFPAY ==
[2020-06-17 21:13] VITALS: BMI 30.2
[2020-09-12 11:12] LABS: HCG Quantitative /Beta subunit < 2.4 mIU/mL
== END ==
PROVIDERS: PCP Family Medicine; Referring Provider Obstetrics & Gynecology; Visit Provider Obstetrics & Gynecology
DX: N91.2 Amenorrhea, unspecified (principal); Z87.59 Personal history of other complications of pregnancy, childbirth and the puerperium
CPT/HCPCS: 36415; 84702

== ENCOUNTER → 2020-10-21 13:52 | Outpatient (CLI) | payer OTHER, MEDICAID, SELFPAY ==
[2020-06-17 21:13] VITALS: BMI 30.2
[2020-10-21 15:04] LABS: HCG Quantitative /Beta subunit < 2.4 mIU/mL
== END ==
PROVIDERS: PCP Family Medicine; Referring Provider Obstetrics & Gynecology; Visit Provider Obstetrics & Gynecology
DX: Z32.01 Encounter for pregnancy test, result positive (principal)
CPT/HCPCS: 36415; 84702

== ENCOUNTER → 2020-10-24 13:20 | Outpatient (CLI) | payer OTHER, MEDICAID, SELFPAY ==
[2020-06-17 21:13] VITALS: BMI 30.2
[2020-10-24 16:45] LABS: HCG Quantitative /Beta subunit < 2.4 mIU/mL
== END ==
PROVIDERS: Referring Provider Obstetrics & Gynecology; Visit Provider Obstetrics & Gynecology
DX: Z32.01 Encounter for pregnancy test, result positive (principal)
CPT/HCPCS: 36415; 84702

== ENCOUNTER → 2020-11-26 10:22 | Outpatient (CLI) | payer OTHER, MEDICAID, SELFPAY ==
[2020-06-17 21:13] VITALS: BMI 30.2
[2020-11-26 11:18] LABS: HCG Quantitative /Beta subunit 15.7 mIU/mL
== END ==
PROVIDERS: Referring Provider Obstetrics & Gynecology; Visit Provider Obstetrics & Gynecology
DX: N92.6 Irregular menstruation, unspecified (principal)
CPT/HCPCS: 36415; 84702

== ENCOUNTER → 2020-11-29 10:07 | Outpatient (CLI) | payer OTHER, MEDICAID, SELFPAY ==
[2020-06-17 21:13] VITALS: BMI 30.2
[2020-11-29 11:48] LABS: HCG Quantitative /Beta subunit < 2.4 mIU/mL
== END ==
PROVIDERS: Referring Provider Obstetrics & Gynecology; Visit Provider Obstetrics & Gynecology
DX: Z34.90 Encounter for supervision of normal pregnancy, unspecified, unspecified trimester (principal)
CPT/HCPCS: 36415; 84702

== ENCOUNTER → 2020-12-27 10:19 | Outpatient (CLI) | payer OTHER, MEDICAID, SELFPAY ==
[2020-06-17 21:13] VITALS: BMI 30.2
[2020-12-27 12:24] LABS: Progesterone, Total 1.01 ng/mL
[2020-12-27 12:27] LABS: Free T4, Direct Thyroxine 1.03 ng/dL (0.78-2.19)
[2020-12-27 12:41] LABS: Thyroid Stimulating Hormone 0.717 uIU/mL (0.47-4.68)
[2020-12-29 23:08] LABS: Dilute Russell Viper Venom 31.9 sec (0.0-47.0); Lupus Reflex Interpretation Comment: (.); PTT-LA 34.6 sec (0.0-51.9)
== END ==
PROVIDERS: Referring Provider Obstetrics & Gynecology; Visit Provider Obstetrics & Gynecology
DX: O26.21 Pregnancy care for patient with recurrent pregnancy loss, first trimester (principal); Z87.59 Personal history of other complications of pregnancy, childbirth and the puerperium
CPT/HCPCS: 36415; 81240; 81241; 81291; 83520; 84144; 84439; 84443; 85598; 85613; 86147; 86148

== ENCOUNTER → 2021-03-30 11:35 | Outpatient (CLI) | payer OTHER, MEDICAID, SELFPAY ==
[2020-06-17 21:13] VITALS: BMI 30.2
[2021-03-30 12:08] LABS: Appearance Urine UA CLEAR; Bilirubin Urine UA NEGATIVE (NEGATIVE); Color Urine UA YELLOW; Glucose Urine UA NEGATIVE (Negative); Ketones Urine UA NEGATIVE (NEGATIVE); Leukocyte Esterase Urine UA NEGATIVE (NEGATIVE); Nitrite Urine UA NEGATIVE (Negative); Occult Blood Urine UA NEGATIVE (Negative); Protein Urine UA NEGATIVE (Negative); Urobilinogen Urine UA 0.2 E.U./dL (0.2)
[2021-03-30 12:12] LABS: pH Urine UA 6.5 (4.5-8.0)
[2021-03-30 13:29] LABS: HCG Quantitative /Beta subunit < 2.4 mIU/mL
== END ==
PROVIDERS: PCP Family Medicine; Referring Provider Obstetrics & Gynecology; Visit Provider Obstetrics & Gynecology
DX: N39.0 Urinary tract infection, site not specified (principal); N91.2 Amenorrhea, unspecified
CPT/HCPCS: 36415; 81003; 84702

== ENCOUNTER → 2021-06-19 11:51 | Outpatient (CLI) | payer OTHER, MEDICAID, SELFPAY ==
[2020-06-17 21:13] VITALS: BMI 30.2
[2021-06-19 13:31] LABS: HCG Quantitative /Beta subunit < 2.4 mIU/mL
== END ==
PROVIDERS: PCP Family Medicine; Referring Provider Obstetrics & Gynecology; Visit Provider Obstetrics & Gynecology
DX: N97.0 Female infertility associated with anovulation (principal)
CPT/HCPCS: 36415; 84702

== ENCOUNTER → 2021-07-17 17:11 | Outpatient (CLI) | payer OTHER, MEDICAID, SELFPAY ==
[2020-06-17 21:13] VITALS: BMI 30.2
[2021-07-17 18:19] LABS: HCG Quantitative /Beta subunit 6.5 mIU/mL
== END ==
PROVIDERS: PCP Family Medicine; Referring Provider Obstetrics & Gynecology; Visit Provider Obstetrics & Gynecology
DX: N92.0 Excessive and frequent menstruation with regular cycle (principal)
CPT/HCPCS: 36415; 84702

== ENCOUNTER 2021-07-17 17:21 | Emergency (ER) | payer OTHER, MEDICAID, SELFPAY ==
[2020-06-17 21:13] VITALS: BMI 30.2
[2021-07-17 17:49] VITALS: BP 129/57; PULSE 81; RESP 14; TEMP 36.3; O2SAT 98; BMI 27.8
--- NOTE | 2021-07-17 18:05 | DI.CT.S_ITS ---
PROCEDURE: CT HEAD/BRAIN WO CON INDICATIONS: fall TECHNIQUE: Noncontrast 4.5 mm thick angled axial sections acquired from the foramen magnum to the vertex, with coronal and sagittal reformats. For radiation dose reduction, the following was used: automated exposure control, adjustment of mA and/or kV according to patient size. COMPARISON: None. FINDINGS: Image quality: Excellent. CSF spaces: Basal cisterns are patent. No extra-axial fluid collections. Ventricles are normal in size and shape. Brain: No midline shift. No intracranial masses or hemorrhage. Cornejo-white matter interface is normal. Skull and face: Calvarium and visualized facial bones are intact, without suspicious lesions. Sinuses: Visualized sinuses and mastoids are clear. IMPRESSION: 1. No acute intracranial abnormalities. Dictated by: Donna Lawrence M.D. on 07/17/2021 at 18:45 Approved by: Donna Lawrence M.D. on 07/17/2021 at 18:46
--- NOTE | 2021-07-17 18:05 | DI.CT.S_ITS ---
PROCEDURE: CT CERVICAL SPINE WO CON INDICATIONS: fall TECHNIQUE: Noncontrast 3 mm thick sections acquired from the skull base to the T4 level. Sagittal and coronal reformats were then constructed. For radiation dose reduction, the following was used: automated exposure control, adjustment of mA and/or kV according to patient size. COMPARISON: [facility], CT, CT HEAD/BRAIN WO CON, 07/17/2021, 18:15. FINDINGS: Image quality: Excellent. Bones: No fractures or dislocations. Straightening of cervical curvature probably related to positioning. Visualized superior ribs are intact. Soft tissues: Prevertebral soft tissues are normal in thickness. No paravertebral hematomas. No apical pneumothoraces. IMPRESSION: No cervical spine fractures. Dictated by: Donna Lawrence M.D. on 07/17/2021 at 18:46 Approved by: Donna Lawrence M.D. on 07/17/2021 at 18:51
--- NOTE | 2021-07-17 19:18 | ED_ITS ---
HPI - Head Injury General Chief complaint: Head Injury Stated complaint: Fall, Hit Head, Confussion Time Seen by Provider: 07/17/21 19:18 Source: patient Mode of arrival: Ambulatory History of Present Illness HPI Narrative: Patient is a 25-year-old female currently struggling with fertility issues presenting after a fall yesterday. She got a pull-up bar that hangs in the doorway she was doing pull-ups when she fell backwards. She is unsure she lost consciousness she felt stunned. Took some ibuprofen complaining of right-sided neck pain. No numbness tingling or weakness. She has not had any nausea or vomiting. No blurry vision. He actually was seen by Ob today she had a blood test done for . She started having very heavy vaginal bleeding before her fall,there is a chance she may be . However she is sure that is not viable she has had 4 miscarriages, 1 ectopic. Related Data Home Medications Medication Instructions Recorded Confirmed aspirin 81 mg tablet,delayed 81 mg PO DAILY 02/28/21 07/06/21 release (Adult Low Dose Aspirin) Folate 5 mg PO DAILY 04/12/21 07/06/21 Previous Rx's Medication Instructions Recorded ondansetron 4 mg disintegrating 4 mg PO Q8H PRN #20 tab 09/05/20 tablet fluconazole 150 mg tablet 150 mg PO DAILY #1 tab 03/08/21 (Diflucan) benzonatate 100 mg capsule 100 mg PO TID PRN #30 cap 04/06/21 (Tessalon Perles) valacyclovir 500 mg tablet 500 mg PO BID #10 tab 05/03/21 (Valtrex) fluticasone propionate 220 2 puff INHALATION BID #12 g 06/12/21 mcg/actuation HFA aerosol inhaler (Flovent HFA) progesterone micronized 100 mg See Rx Instructions .ROUTE 06/14/21 capsule .COMPLEX #30 cap dextroamphetamine-amphetamine 10 10 mg PO BID #60 tab 07/13/21 mg tablet (Adderall) letrozole 2.5 mg tablet 5 mg PO .COMPLEX #10 tab 07/17/21 Allergies Allergy/AdvReac Type Severity Reaction Status Date / Time cefaclor [From [facility]] AdvReac hallucinati Verified 07/06/21 08:33 ons Review of Systems Review of Systems Narrative: GENERAL: Denies chills, fatigue, malaise, fever, sweats, travel HEENT: Denies sinus pain, ear pain, sore throat, difficulty swallowing, neck pain RESPIRATORY: Denies dyspnea, cough, wheezing, hemoptysis, sputum. CARDIOVASCULAR: Denies chest pain, palpitations, orthopnea, edema GASTROINTESTINAL: Denies nausea, vomiting, abdominal pain, diarrhea, constipation, melena. : Denies dysuria, frequency, incontinence, hematuria, urinary retention, flank pain. MUSCULOSKELETAL: See HPI SKIN: No rash, no erythema, no pruritus NEUROLOGIC: See HPI PSYCHIATRIC: No concerning psychosocial issues. 12 point review of systems is negative except for those stated above and HPI Patient History Medical History (Updated 07/17/21 @ 19:26 by Tiffanie Valdivia DO) Acne (~2015) ADHD (~2005) Anxiety (~2016) Asthma History of ectopic Infertility (~2019) Irregular menstrual cycle (~2016) MTHFR gene mutation Ovarian cyst (~2016) Painful menstrual periods (~2016) PCOS (polycystic ovarian syndrome) (~2016) PCOS (polycystic ovarian syndrome) PTSD (post-traumatic stress disorder) (~2016) Surgical History (Updated 03/22/21 @ 21:27 by Hanh Caruso) Anesthesia H/O unilateral salpingectomy (~2019) History of dilatation and curettage (~2019) S/P T&A (status post tonsillectomy and adenoidectomy) (~2014) Status post wisdom tooth extraction (~2011) Family History (Updated 03/22/21 @ 21:31 by Hanh Caruso) Grandfather Skin cancer Hypertension Grandmother Cancer Diabetes mellitus History of heart disease Hypertension H/O MTHFR mutation Grandmother Skin cancer Social History household members: friend(s) Smoking Status: Current every day smoker alcohol intake: current Smoking Status: Current every day smoker tobacco type: vaping alcohol intake frequency: a few times a month Substance Use Type: marijuana Exam Initial Vital Signs Initial Vital Signs: Vital Signs Temperature 97.4 F L 07/17/21 17:49 Pulse Rate 81 07/17/21 17:49 Respiratory Rate 14 07/17/21 17:49 Blood Pressure 129/57 L 07/17/21 17:49 Pulse Oximetry 98 07/17/21 17:49 GENERAL: [Well-appearing, well-nourished] and in [no acute] distress. HEENT: Head atraumatic,EOMI, pupils reactive, face symmetric, [moist] mucous membranes NECK: Full flexion extension and rotation however quite tender around C2-C3 or laterally is on the right side CARDIOVASCULAR: Regular rate and rhythm without murmurs, rubs or gallops. RESPIRATORY: Breath sounds equal bilaterally, no wheezes rales or rhonchi. ABDOMEN: Soft, nontender, no lower abdominal pain. Normoactive bowel sounds all 4 quadrants. No guarding or rebound. EXTREMITIES: Normal range of motion, no clubbing or edema. Neurovascularly intact NEUROLOGICAL: Alert and oriented x4.Normal gait and speech. Cranial nerves II through XII grossly intact. Arm strength equal bilaterally for vascularly intact bilateral SKIN: Warm, dry, no laceration, no petechiae, no rashes or lesions. Course Orders Ordered: ED Orders 07/17/21 18:05 CT cervical spine wo con Stat CT head/brain wo con Stat 07/17/21 18:46 Urine Microscopic Stat Vital Signs Vital signs: Vital Signs - 8 hr 07/17/21 17:49 Temperature 97.4 F L Pulse Rate 81 Respiratory Rate 14 Blood Pressure 129/57 L Pulse Oximetry 98 MDM - Head Injury Lab Data Labs: Lab Results 07/17/21 Range/Units 18:46 Urine RBC 10-30/hpf H (0-5/HPF) Urine WBC 0-1/hpf (0-5/HPF) Ur Squamous Epith Cells 0-1 /hpf (0-5/HPF) Urine Bacteria None seen (None) Ur Culture Indicated? Cult not indicated Point of Care Testing Test Results Negative Urine Dip Bedside Urine Glucose Negative Bedside Urine Bilirubin - Negative Bedside Urine Ketone - Negative Urine Specific [place] 1.015 Bedside Urine Occult Blood +++ Bedside Urine pH 6.0 Bedside Urine Protein - Negative Bedside Urine Urobilinogen - Negative Bedside Urine Nitrite - Negative Bedside Urine Leukocytes - Negative Esterase Imaging Data CT - cervical spine: Radiologist's Impression: PROCEDURE:? CT CERVICAL SPINE WO CON ? INDICATIONS:? fall ? TECHNIQUE:? Noncontrast 3 mm thick sections acquired from the skull base to the T4 level.? Sagittal and coronal reformats were then constructed.? For radiation dose reduction, the following was used:? automated exposure control, adjustment of mA and/or kV according to patient size.? ? COMPARISON:? Located Within [facility], CT, CT HEAD/BRAIN WO CON, 07/17/2021, 18:15. ? FINDINGS:? Image quality:? Excellent.? ? Bones:? No fractures or dislocations.? Straightening of cervical curvature probably related to positioning.? Visualized superior ribs are intact.? ? Soft tissues:? Prevertebral soft tissues are normal in thickness.? No paravertebral hematomas.? No apical pneumothoraces.? ? ? IMPRESSION:? No cervical spine fractures. ? ? ? Dictated by: Donna Lawrence M.D. on 07/17/2021 at 18:46 ? ? Approved by: Donna Lawrence M.D. on 07/17/2021 at 18:5 CT scan - head: Radiologist's Impression: PROCEDURE:? CT HEAD/BRAIN WO CON ? INDICATIONS:? fall ? TECHNIQUE:? Noncontrast 4.5 mm thick angled axial sections acquired from the foramen magnum to the vertex, with coronal and sagittal reformats.? For radiation dose reduction, the following was used:? automated exposure control, adjustment of mA and/or kV according to patient size.? ? COMPARISON:? None. ? FINDINGS:? Image quality:? Excellent.? ? CSF spaces:? Basal cisterns are patent.? No extra-axial fluid collections.? Ventricles are normal in size and shape.? ? Brain:? No midline shift.? No intracranial masses or hemorrhage.? Cornejo-white matter interface is normal.? ? Skull and face:? Calvarium and visualized facial bones are intact, without suspicious lesions.? ? Sinuses:? Visualized sinuses and mastoids are clear.? ? IMPRESSION:? ? 1. No acute intracranial abnormalities. ? Dictated by: Donna Lawrence M.D. on 07/17/2021 at 18:45 ? ? Approved by: Donna Lawrence M.D. on 07/17/2021 at 18:46 ? MDM Narrative Medical decision making narrative: Patient does have prior history of ectopic . She has no abdominal pain some mild cramping. HCG is 6. I informed patient of probable miscarriage. she very clearly is upset constantly. She has no abdominal pain though she is at risk for ectopic due to previous ectopic, and current fertility treatment. HCG is quite low without significant abdominal pain. CTs for head and neck injury her negative. She has good follow-up with OB. At this time she would like to just go home, she is quite upset. Discharge Plan Departure Patient Disposition: Home Clinical Impression: Cervical muscle strain, Closed head injury, Miscarriage Instructions: Whiplash, DI for Closed Head Injury Activity Restrictions/Additional Instructions: *You have been diagnosed with cervical strain and probable miscarriage *What to do: Please follow-up with your OB, hCG today is 6.5. Have this rechecked in 48 hours. May require ultrasound *Continue to take medications as directed *Follow up with your primary care provider in 2-3 days or call [phone] *Return to ER if you should have increased abdominal pain, heavy bleeding going through more than 2 super pads an hour, persistent nausea vomiting please return to emergency department or any new, worsening or concerning symptoms Prescriptions: No Action ondansetron 4 mg tablet,disintegrating 4 mg PO Q8H PRN (Reason: nausea and vomiting) Qty: 20 1RF fluconazole [Diflucan] 150 mg tablet 150 mg PO DAILY Qty: 1 1RF benzonatate [Tessalon Perles] 100 mg capsule 100 mg PO TID PRN (Reason: cough) Qty: 30 0RF Folate 5 mg PO DAILY 0RF valacyclovir [Valtrex] 500 mg tablet 500 mg PO BID Qty: 10 3RF Rx Instructions: Take 1 tablet by mouth twice daily for 5 days at onset of cold sore. Flovent HFA 220 mcg/actuation HFA aerosol inhaler 2 puff inhalation BID Qty: 12 0RF progesterone micronized 100 mg capsule See Rx Instructions .ROUTE .COMPLEX Qty: 30 0RF Dose Instruction: take 2 capsules by mouth once daily STARTING DAY 14 OF YOUR CYCLE UNTIL START OF MENSES OR POSITIVE TEST Rx Instructions: take 2 capsules by mouth once daily STARTING DAY 14 OF YOUR CYCLE UNTIL START OF MENSES OR POSITIVE TEST dextroamphetamine-amphetamine [Adderall] 10 mg tablet 10 mg PO BID Qty: 60 0RF Rx Instructions: administer doses at least 4-6 hours apart letrozole 2.5 mg tablet 5 mg PO .COMPLEX Qty: 10 0RF Rx Instructions: 5 mg PO day 3-7 of period; aspirin [Adult Low Dose Aspirin] 81 mg tablet,delayed release (DR/EC) 81 mg PO DAILY 0RF Referrals: Dayton Ashley MD [Primary Care Provider] - iLyah Lr MD [Physician] -
[2021-07-17 19:36] LABS: Bacteria Urine None Seen; Culture Indicated Urine Cult Not Indicated; RBC Urine 10-30/HPF (0-5/HPF); Squamous Epithelial Cell Urine 0-1 /HPF (0-5/HPF); WBC Urine 0-1/HPF (0-5/HPF)
== END 2021-07-17 19:35 | disposition home or self-care (01) ==
PROVIDERS: Emergency Provider Emergency Medicine; PCP Family Medicine
DX: O26.899 Other specified pregnancy related conditions, unspecified trimester (principal); S16.1XXA Strain of muscle, fascia and tendon at neck level, initial encounter; S09.90XA Unspecified injury of head, initial encounter; O03.9 Complete or unspecified spontaneous abortion without complication; F17.290 Nicotine dependence, other tobacco product, uncomplicated; W19.XXXA Unspecified fall, initial encounter; Y93.B2 Activity, push-ups, pull-ups, sit-ups; Z3A.00 Weeks of gestation of pregnancy not specified; N92.0 Excessive and frequent menstruation with regular cycle
CPT/HCPCS: 36415; 70450; 72125; 81003; 81015; 81025; 84702; 99283; 99284

== ENCOUNTER → 2021-08-14 12:07 | Outpatient (CLI) | payer OTHER, MEDICAID, SELFPAY ==
[2020-06-17 21:13] VITALS: BMI 30.2
[2021-08-14 14:15] LABS: HCG Quantitative /Beta subunit < 2.4 mIU/mL
== END ==
PROVIDERS: PCP Family Medicine; Referring Provider Obstetrics & Gynecology; Visit Provider Obstetrics & Gynecology
DX: N93.9 Abnormal uterine and vaginal bleeding, unspecified (principal); O03.9 Complete or unspecified spontaneous abortion without complication
CPT/HCPCS: 36415; 84702

== ENCOUNTER → 2021-09-11 12:34 | Outpatient (CLI) | payer OTHER, MEDICAID, SELFPAY ==
[2020-06-17 21:13] VITALS: BMI 30.2
[2021-09-11 14:00] LABS: Add Manual Diff / Slide Review NO; Basophils Absolute Auto 100 /uL (0-100); Basophils Percent Auto 0.6 % (0-2); Eosinophils Absolute Auto 300 /uL (0-450); Eosinophils Percent Auto 3.4 % (2-4); Hematocrit 41.1 % (36-46); Lymphocytes Absolute Auto 2200 /uL (1100-4500); Lymphocytes Percent Auto 25.8 % (25-40); Mean Corpuscular Volume 91.1 fL (80-100); Monocytes Absolute Auto 600 /uL (0-900); Monocytes Percent Auto 7.1 % (3-14); Neutrophils Absolute Auto 5400 /uL (1500-7000); Neutrophils Percent Auto 63.1 % (50-75); Platelet Count 321 X10^3/uL (150-400); Red Blood Cell Count 4.51 X10^6/uL (4.0-5.2); Red Cell Distribution Width 13.1 % (11.6-14.8); White Blood Cell Count 8.6 X10^3/uL (4.5-11.0)
[2021-09-11 15:12] LABS: Alanine Aminotransferase 15 IU/L (<35); Albumin 4.8 g/dL (3.5-5.0); Albumin Globulin Ratio 2.1 (1.0-2.8); Alkaline Phosphatase 48 U/L (38-126); Aspartate Aminotransferase 25 IU/L (14-36); BUN Creatinine Ratio 10.5 (6-22); Bilirubin Total 0.4 mg/dL (0.2-1.3); Blood Urea Nitrogen 9 mg/dL (7-17); Calcium 9.5 mg/dL (8.4-10.2); Carbon Dioxide 26 mmol/L (22-32); Chloride 104 mmol/L (98-107); Estimated Glomerular Filt Rate > 60.0 mL/min (>60); Globulin 2.3 g/dL (1.7-4.1); Glucose 97 mg/dL (70-100); HEMOLYSIS < 15 (0-50); Potassium 3.6 mmol/L (3.4-5.1); Sodium 140 mmol/L (137-145); Total Protein 7.1 g/dL (6.3-8.2)
[2021-09-11 15:40] LABS: TSH w/ Reflex to FT4 1.25 uIU/mL (0.47-4.68)
== END ==
PROVIDERS: PCP Family Medicine; Referring Provider Family Medicine; Visit Provider Family Medicine
DX: R59.0 Localized enlarged lymph nodes (principal)
CPT/HCPCS: 36415; 80053; 84443; 85025

== ENCOUNTER → 2021-10-02 15:51 | Outpatient (CLI) | payer OTHER, MEDICAID, SELFPAY ==
[2020-06-17 21:13] VITALS: BMI 30.2
[2021-10-02 18:14] LABS: HCG Quantitative /Beta subunit < 2.4 mIU/mL
== END ==
PROVIDERS: PCP Family Medicine; Referring Provider Obstetrics & Gynecology; Visit Provider Obstetrics & Gynecology
DX: N93.9 Abnormal uterine and vaginal bleeding, unspecified (principal)
CPT/HCPCS: 36415; 84702

== ENCOUNTER → 2021-10-10 12:55 | Outpatient (CLI) | payer OTHER, MEDICAID, SELFPAY ==
[2020-06-17 21:13] VITALS: BMI 30.2
--- NOTE | 2021-10-10 12:58 | DI.RAD.S_ITS ---
PROCEDURE: HL HYSTEROSAPINGOGRAPHY INDICATIONS: Hx ruptured L ectopic, PCOS, infertility COMPARISON: None. FINDINGS: Patient had a documented negative test prior to the study. Following speculum insertion, a balloon-tip catheter was inserted into the cervical canal, and secured by inflating the balloon. Contrast was then injected into the endometrial canal. Uterus: The uterine cavity appears normal in size and morphology, without synechiae or masses. Fallopian tubes: The right fallopian tube fills with contrast, and appear normal in caliber and morphology. Left fallopian tube does not fill with contrast. There is ready dispersion of contrast into the peritoneal cavity from patent right fallopian tube.. IMPRESSION: 1. Patent right fallopian tube. 2. Occluded left fallopian tube. Dictated by: Lexi Sylvester MD, PhD on 10/10/2021 at 13:49 Approved by: Lexi Sylvester MD, PhD on 10/10/2021 at 13:50
--- NOTE | 2021-10-10 18:27 | P.PCN_ITS ---
Procedures Date/Time Date of procedure: 10/10/21 Time of procedure: 13:16 General Procedure description: After informed consent was obtained, the patient was placed onto the fluoroscopy table with her pelvis on an overturned bedpan. A bivalve speculum was placed into the vagina. The cervix was cleaned x3 with Betadine. A single-tooth tenaculum was placed on the anterior lip of the cervix. The HSG catheter passed easily into the endometrial cavity and the balloon was inflated with 3 cc of air. Omni view 300, 20 cc, was injected under direct fluoroscopic examination. The contours of the uterus were normal. There was immediate spill from the right tube. Patient's left tube had been previously surgically removed. The balloon in the HSG catheter was deflated and the catheter was removed without difficulty. The single-tooth tenaculum was removed from the anterior lip of the cervix. The bivalve speculum was removed from the vagina. The patient tolerated the procedure well. Sponge count was correct x2. The bedpan was r emoved from under the patient's pelvis. Complications: none
== END ==
PROVIDERS: PCP Family Medicine; Referring Provider Obstetrics & Gynecology; Visit Provider Obstetrics & Gynecology
DX: E28.2 Polycystic ovarian syndrome (principal); N97.1 Female infertility of tubal origin; Z87.59 Personal history of other complications of pregnancy, childbirth and the puerperium; Z90.79 Acquired absence of other genital organ(s)
CPT/HCPCS: 58340; 74740

== ENCOUNTER → 2021-10-13 17:17 | Outpatient (CLI) | payer OTHER, MEDICAID, SELFPAY ==
[2020-06-17 21:13] VITALS: BMI 30.2
[2021-10-14 06:24] LABS: Homocysteine 7.5 umol/L (0.0-14.5)
== END ==
PROVIDERS: PCP Family Medicine; Referring Provider Obstetrics & Gynecology; Visit Provider Obstetrics & Gynecology
DX: N96 Recurrent pregnancy loss (principal); Z15.89 Genetic susceptibility to other disease; Z87.59 Personal history of other complications of pregnancy, childbirth and the puerperium; Z90.79 Acquired absence of other genital organ(s)
CPT/HCPCS: 36415; 83090

== ENCOUNTER → 2021-12-09 10:57 | Outpatient (CLI) | payer OTHER, MEDICAID, SELFPAY ==
[2020-06-17 21:13] VITALS: BMI 30.2
[2021-12-09 11:43] LABS: HCG Quantitative /Beta subunit < 2.4 mIU/mL
== END ==
PROVIDERS: PCP Family Medicine; Referring Provider Specialist; Visit Provider Specialist
DX: N93.9 Abnormal uterine and vaginal bleeding, unspecified (principal)
CPT/HCPCS: 36415; 84702

== ENCOUNTER 2021-12-24 11:25 | Emergency (ER) | payer OTHER, MEDICAID, SELFPAY ==
[2020-06-17 21:13] VITALS: BMI 30.2
[2021-12-24 11:33] VITALS: BP 109/81; PULSE 90; RESP 18; TEMP 36.9; O2SAT 100; BMI 25.2
--- NOTE | 2021-12-24 11:38 | DI.RAD.S_ITS ---
PROCEDURE: XR FOREARM LT 2V INDICATIONS: trip and fall and laceration repaired yesterday TECHNIQUE: 2 views of the forearm were acquired. COMPARISON: None. FINDINGS: Bones: No fractures or dislocations. No suspicious bony lesions. Soft tissues: No suspicious soft tissue calcifications or masses. No suspicious soft tissue gas or foreign body. IMPRESSION: 1. Normal forearm soft tissues and osseous structures. Dictated by: Liset Junior M.D. on 12/24/2021 at 12:19 Approved by: Liset Junior M.D. on 12/24/2021 at 12:20
[2021-12-24] MEDS: ACETAMINOPHEN 325 MG TABLET 650 MG PO (13:39)
--- NOTE | 2021-12-24 14:42 | PC.NURSE ---
patient called to ask for update, updated patient to best of ability. Explained patient are being seen based on acuity level. Reassured patient that we are doing our best and will see her as soon as possible. Patient continued to yell at this RN this is ridiculous your telling me I do not matter and I have watched you bring people back Attempted to de esculate patient. Patient hung up on this RN and called back again requesting my Name.
== END 2021-12-24 15:13 | disposition left against medical advice (07) ==
PROVIDERS: Emergency Provider Family Medicine Addiction Medicine; PCP Family Medicine
DX: S59.912A Unspecified injury of left forearm, initial encounter (principal)
CPT/HCPCS: 73090; 99283

== ENCOUNTER → 2022-01-17 14:48 | Outpatient (CLI) | payer OTHER, MEDICAID, SELFPAY ==
[2020-06-17 21:13] VITALS: BMI 30.2
[2022-01-17 15:45] LABS: HCG Quantitative /Beta subunit < 2.4 mIU/mL
== END ==
PROVIDERS: PCP Family Medicine; Referring Provider Obstetrics & Gynecology; Visit Provider Obstetrics & Gynecology
DX: N91.2 Amenorrhea, unspecified (principal)
CPT/HCPCS: 36415; 84702

== ENCOUNTER → 2022-02-20 15:45 | Outpatient (CLI) | payer OTHER, MEDICAID, SELFPAY ==
[2020-06-17 21:13] VITALS: BMI 30.2
[2022-02-20 17:26] LABS: HCG Quantitative /Beta subunit 348.8 mIU/mL
== END ==
PROVIDERS: PCP Family Medicine; Referring Provider Obstetrics & Gynecology; Visit Provider Obstetrics & Gynecology
DX: Z34.91 Encounter for supervision of normal pregnancy, unspecified, first trimester (principal)
CPT/HCPCS: 36415; 84702

== ENCOUNTER → 2022-02-22 09:54 | Outpatient (CLI) | payer OTHER, MEDICAID, SELFPAY ==
[2020-06-17 21:13] VITALS: BMI 30.2
[2022-02-22 13:13] LABS: HCG Quantitative /Beta subunit 868.9 mIU/mL
== END ==
PROVIDERS: PCP Family Medicine; Referring Provider Obstetrics & Gynecology; Visit Provider Obstetrics & Gynecology
DX: Z34.91 Encounter for supervision of normal pregnancy, unspecified, first trimester (principal)
CPT/HCPCS: 36415; 84702

== ENCOUNTER → 2022-02-23 12:03 | Outpatient (CLI) | payer OTHER, MEDICAID, SELFPAY ==
[2020-06-17 21:13] VITALS: BMI 30.2
[2022-02-24 17:47] LABS: Candida species Positive (Negative); Gardnerella vaginalis Negative (Negative); Trichomoas vaginalis Negative (Negative)
== END ==
PROVIDERS: PCP Family Medicine; Visit Provider Obstetrics & Gynecology
DX: N89.8 Other specified noninflammatory disorders of vagina (principal)
CPT/HCPCS: 87480; 87510; 87660

== ENCOUNTER → 2022-05-14 14:33 | Outpatient (CLI) | payer OTHER, MEDICAID, SELFPAY ==
[2020-06-17 21:13] VITALS: BMI 30.2
[2022-05-14 15:03] LABS: Appearance Urine UA CLEAR; Bilirubin Urine UA NEGATIVE (NEGATIVE); Color Urine UA YELLOW; Glucose Urine UA NEGATIVE (Negative); Ketones Urine UA NEGATIVE (NEGATIVE); Leukocyte Esterase Urine UA NEGATIVE (NEGATIVE); Nitrite Urine UA NEGATIVE (Negative); Occult Blood Urine UA TRACE-LYSED (Negative); Protein Urine UA NEGATIVE (Negative); Specific Gravity Urine UA <=1.005 (1.000-1.035); Urobilinogen Urine UA 0.2 E.U./dL (0.2); pH Urine UA 6.5 (4.5-8.0)
[2022-05-14 15:42] LABS: Add Manual Diff / Slide Review NO; Basophils Absolute Auto 100 /uL (0-100); Basophils Percent Auto 0.6 % (0-2); Eosinophils Absolute Auto 300 /uL (0-450); Eosinophils Percent Auto 1.8 % (2-4); Hematocrit 33.6 % (36-46); Hemoglobin 11.2 g/dL (12.0-16.0); Lymphocytes Absolute Auto 2500 /uL (1100-4500); Lymphocytes Percent Auto 14.7 % (25-40); Mean Corpuscular HGB Conc 33.4 % (30-36); Mean Corpuscular Hemoglobin 30.9 PG (26-34); Mean Corpuscular Volume 92.5 fL (80-100); Monocytes Absolute Auto 1100 /uL (0-900); Monocytes Percent Auto 6.8 % (3-14); Neutrophils Absolute Auto 12900 /uL (1500-7000); Neutrophils Percent Auto 76.1 % (50-75); Platelet Count 390 X10^3/uL (150-400); Red Blood Cell Count 3.63 X10^6/uL (4.0-5.2); White Blood Cell Count 16.9 X10^3/uL (4.5-11.0)
[2022-05-14 16:37] LABS: Hepatitis B Surface Antigen NEGATIVE s/c (NEGATIVE)
[2022-05-14 16:54] LABS: HIV 1 & 2 Ab/Ag 4th Gen Combo NEGATIVE (NEGATIVE); Hep C Virus Ab w/Reflex Quant NEGATIVE s/c (NEGATIVE)
[2022-05-16 07:02] LABS: RPR Screen Non Reactive (Non Reactive); Varicella IgG Antibody 531 index (Immune >165)
== END ==
PROVIDERS: PCP Family Medicine; Referring Provider Obstetrics & Gynecology; Visit Provider Obstetrics & Gynecology
DX: Z34.81 Encounter for supervision of other normal pregnancy, first trimester (principal)
CPT/HCPCS: 36415; 80055; 81003; 86787; 86803; 86850; 86900; 86901; 87389

== ENCOUNTER → 2022-05-31 13:15 | Outpatient (CLI) | payer OTHER, MEDICAID, SELFPAY ==
[2020-06-17 21:13] VITALS: BMI 30.2
[2022-06-02 18:35] LABS: Estriol, Free 1.19 ng/mL (.); Inhibin A, Dimeric 325.29 pg/mL (.); Inhibin A, MoM 1.95 (.); Maternal Ethnicity Caucasian (.); Maternal Weight 140 lbs (.); Number of Fetuses Twins (.); OSBR Risk 1 IN 2294 (.); Results Report (.); Test Results *Screen Negative* (.); hCG, MoM 1.57 (.); hCG, Serum 48607 mIU/mL (.)
== END ==
PROVIDERS: PCP Family Medicine; Referring Provider Obstetrics & Gynecology; Visit Provider Obstetrics & Gynecology
DX: Z34.82 Encounter for supervision of other normal pregnancy, second trimester (principal); Z3A.16 16 weeks gestation of pregnancy
CPT/HCPCS: 36415; 82105; 82677; 84702; 86336

== ENCOUNTER → 2022-06-13 14:12 | Outpatient (CLI) | payer OTHER, MEDICAID, SELFPAY ==
[2020-06-17 21:13] VITALS: BMI 30.2
--- NOTE | 2022-06-13 14:13 | DI.US.S_ITS ---
PROCEDURE: US OB >= 14 WEEKS FETUS INDICATIONS: ANATOMY; TWINS OUTSIDE/PRIOR DATING DATA: Last menstrual period (LMP): 01/22/2022. LMP-based estimated date of delivery (MARLEE): 10/29/2022. First dating scan (date and location): 03/13/2022. Estimated date of delivery (MARLEE) from first dating scan: 11/01/2031. TECHNIQUE: Real-time scanning was performed of the fetuses, with image documentation and biometric measurements. Endovaginal scanning: Not performed COMPARISON: [facility], , OB <= 14 WEEKS FETUS, 03/13/2022, 11:54. [facility], , OB <= 14 WEEKS FETUS, 04/10/2022, 9:21. [facility], , OB >= 14 WEEKS FETUS, 05/14/2022, 14:26. FINDINGS: General: An intrauterine twin is present, dichorionic diamniotic based on appearance on prior ultrasounds. Amniotic fluid index: 15.5 cm fetus A, 9.6 cm fetus B. Maternal cervical canal: 3.4 cm long. Normal lower limit is 2.5 cm. FETUS A: Fetus is in breech presentation. Largest amniotic fluid pocket: 5.8 cm; normal range is 2-8 cm. Placental position is anterior , without previa. heart rate: 137 beats per minute. biometrics: Biparietal diameter: 5.0 cm, 21 weeks 0 days Head circumference: 17.9 cm, 20 weeks 2 days Abdominal circumference: 15.1 cm, 20 weeks 2 days Femur length: 3.4 cm, 20 weeks 5 days estimated gestational age: 20 weeks 0 days Composite gestational age from present scan: 20 weeks 4 days Estimated weight and percentile: 359 g, 75th percentile Anatomic survey: Neuro: Ventricles are normal at less than 10 mm. Cisterna magna is normal at 3-11 mm. Cerebellum is normal in size and morphology. Nuchal skin fold: Normal at less than 6 mm between 14 and 21 weeks gestational age. Face: Nose and lips, facial profile are normal. Spine: No evidence for spina bifida. Heart: 4 chambered heart is present, with normal ventricular outflow tracts. Diaphragm: Diaphragm is intact. Stomach: Left-sided stomach is present. Kidneys: No hydronephrosis. Normal ranges are less than 5 mm in 2nd trimester, less than 7 mm in 3rd trimester. Cord: 3 vessel cord has orthotopic insertion. Bladder: Normal in size. Extremities: All 4 extremities are visualized. FETUS B: Fetus is in transverse presentation. Largest amniotic fluid pocket: 4.9 cm; normal range is 2-8 cm. Placental position is anterior , without previa. heart rate: 149 beats per minute. biometrics: Biparietal diameter: 4.9 cm, 20 weeks 6 days Head circumference: 18.0 cm, 20 weeks 3 days Abdominal circumference: 15.5 cm, 20 weeks 5 days Femur length: 3.2 cm, 20 weeks 2 days estimated gestational age: 20 weeks 0 days Composite gestational age from present scan: 20 weeks 4 days Estimated weight and percentile: 358 g, 74th percentile Anatomic survey: Neuro: Ventricles are normal at less than 10 mm. Cisterna magna is normal at 3-11 mm. Cerebellum is normal in size and morphology. Nuchal skin fold: Normal at less than 6 mm between 14 and 21 weeks gestational age. Face: Nose and lips, facial profile are normal. Spine: No evidence for spina bifida. Heart: 4 chambered heart is present, with normal ventricular outflow tracts. Left ventricular Echogenic intracardiac focus present. Diaphragm: Diaphragm is intact. Stomach: Left-sided stomach is present. Kidneys: No hydronephrosis. Normal ranges are less than 5 mm in 2nd trimester, less than 7 mm in 3rd trimester. Cord: 3 vessel cord has orthotopic insertion. Bladder: Normal in size. Extremities: All 4 extremities are visualized. IMPRESSION: 1. Living twin dichorionic diamniotic . 2. Estimated weight of both twins within normal limits. 3. Isolated left ventricular echogenic intracardiac focus present in twin B. Recommend correlation with maternal age, ethnicity, and aneuploidy risk assessment results such as serum screening or cell free DNA testing to help guide further management. This finding in the context of low risk CFF DNA screening is likely a normal variant and not clinically significant. 4. The remainder of the 2nd trimester anatomy survey for twin B is normal. 5. Normal 2nd trimester anatomy survey of twin A. We strive to produce accurate, complete, and clear reports of imaging services. To assist us in improving patient care, this report was composed using standard report templates and voice recognition software. Therefore, it may contain abnormal punctuation, insertions and/or omissions. Occasional wrong-word or sound-alike substitutions may occur. Though we review the report and make efforts to correct it, we do recommend that the report be read carefully in proper context to recognize any text inaccuracies. Dictated by: Clarence Latif M.D. on 06/14/2022 at 14:01 Approved by: Clarence Latif M.D. on 06/14/2022 at 14:27
== END ==
PROVIDERS: PCP Family Medicine; Referring Provider Obstetrics & Gynecology; Visit Provider Obstetrics & Gynecology
DX: O30.042 Twin pregnancy, dichorionic/diamniotic, second trimester (principal); Z3A.20 20 weeks gestation of pregnancy
CPT/HCPCS: 76811; 76812

== ENCOUNTER 2022-07-16 22:08 | Outpatient (CLI) | payer OTHER, MEDICAID, SELFPAY ==
[2020-06-17 21:13] VITALS: BMI 30.2
== END 2022-07-16 22:50 | disposition home or self-care (01) ==
LOC: OB 07-19 10:04
PROVIDERS: PCP Family Medicine; Referring Provider Obstetrics & Gynecology; Visit Provider Obstetrics & Gynecology
DX: Z03.71 Encounter for suspected problem with amniotic cavity and membrane ruled out (principal); O30.002 Twin pregnancy, unspecified number of placenta and unspecified number of amniotic sacs, second trimester; Z3A.25 25 weeks gestation of pregnancy
CPT/HCPCS: 84112; G0378; G0379

== ENCOUNTER → 2022-07-28 11:10 | Outpatient (CLI) | payer OTHER, MEDICAID, SELFPAY ==
[2020-06-17 21:13] VITALS: BMI 30.2
[2022-07-28 13:10] LABS: Hematocrit 33.4 % (36-46); Hemoglobin 11.1 g/dL (12.0-16.0)
[2022-07-28 13:16] LABS: GTT (PREG) 1 Hour PP 50gm Dose 98 mg/dL (76-139)
== END ==
PROVIDERS: PCP Family Medicine; Referring Provider Obstetrics & Gynecology; Visit Provider Obstetrics & Gynecology
DX: Z34.82 Encounter for supervision of other normal pregnancy, second trimester (principal); Z3A.26 26 weeks gestation of pregnancy
CPT/HCPCS: 36415; 82950; 85014; 85018

== ENCOUNTER 2022-08-14 15:46 | Outpatient (CLI) | payer OTHER, MEDICAID, SELFPAY ==
[2020-06-17 21:13] VITALS: BMI 30.2
== END 2022-08-14 16:25 | disposition home or self-care (01) ==
LOC: LABOR 15:59 → OB 08-15 16:14
PROVIDERS: PCP Family Medicine; Referring Provider Obstetrics & Gynecology; Visit Provider Obstetrics & Gynecology
DX: O30.003 Twin pregnancy, unspecified number of placenta and unspecified number of amniotic sacs, third trimester (principal); Z3A.29 29 weeks gestation of pregnancy
CPT/HCPCS: 59025; G0378; G0379

== ENCOUNTER 2022-08-20 10:59 | Outpatient (CLI) | payer OTHER, MEDICAID, SELFPAY ==
[2020-06-17 21:13] VITALS: BMI 30.2
== END 2022-08-20 12:01 | disposition home or self-care (01) ==
LOC: OB 08-23 13:47
PROVIDERS: PCP Family Medicine; Referring Provider Obstetrics & Gynecology; Visit Provider Obstetrics & Gynecology
DX: O30.003 Twin pregnancy, unspecified number of placenta and unspecified number of amniotic sacs, third trimester (principal); O26.893 Other specified pregnancy related conditions, third trimester; D68.9 Coagulation defect, unspecified; Z3A.30 30 weeks gestation of pregnancy
CPT/HCPCS: 59025; G0378; G0379

== ENCOUNTER 2022-08-27 12:37 | Outpatient (CLI) | payer OTHER, MEDICAID, SELFPAY ==
[2020-06-17 21:13] VITALS: BMI 30.2
== END 2022-08-27 13:20 | disposition home or self-care (01) ==
LOC: LABOR 12:39 → OB 08-29 06:59
PROVIDERS: PCP Family Medicine; Referring Provider Obstetrics & Gynecology; Visit Provider Obstetrics & Gynecology
DX: O36.8130 Decreased fetal movements, third trimester, not applicable or unspecified (principal); O30.003 Twin pregnancy, unspecified number of placenta and unspecified number of amniotic sacs, third trimester; Z3A.31 31 weeks gestation of pregnancy
CPT/HCPCS: 59025; G0378; G0379

== ENCOUNTER 2022-09-03 11:05 | Outpatient (CLI) | payer OTHER, MEDICAID, SELFPAY ==
[2020-06-17 21:13] VITALS: BMI 30.2
--- NOTE | 2022-09-03 17:30 | P.TNLD_ITS ---
Visit Information Visit Information Date of evaluation: 09/03/22 Primary OB Provider: Liyah Lr On-call OB Provider: Liyah Lr Reason for Evaluation: Yes non-stress test non-stress test reason: other (Twins) [facility] Medical History (Updated 09/01/22 @ 14:31 by Liyah Lr MD) Acne (~2015) ADHD (~2005) Anxiety (~2016) Asthma History of ectopic History of recurrent miscarriages Infertility (~2019) Irregular menstrual cycle (~2016) Ovarian cyst (~2016) Painful menstrual periods (~2016) PCOS (polycystic ovarian syndrome) (~2016) Posterior cervical lymphadenopathy PTSD (post-traumatic stress disorder) (~2016) Surgical History (Updated 02/27/22 @ 08:13 by Judith Ayon, RN) Anesthesia H/O unilateral salpingectomy (~2019) History of dilatation and curettage (~2019) S/P T&A (status post tonsillectomy and adenoidectomy) (~2014) Status post ectopic Status post wisdom tooth extraction (~2011) Family History (Updated 02/27/22 @ 08:18 by Judith Ayon, RN) Grandfather Skin cancer Hypertension Grandmother Diabetes mellitus History of heart disease Hypertension H/O MTHFR mutation Breast cancer Grandmother Skin cancer Uterine fibroid Mother Fibromyalgia Anxiety Father Bipolar disorder Social History marital status: unmarried,living together number of children: 1 (stepson) household members: significant other and children lives independently: Yes housing: other (mobile home) pets and animals: Yes (1 dog, 1 kitten, 2 lizards and a hampster ) education level: college (some college) occupational status: employed (freelance housekeeping) and student current occupational exposures/hazards: No special nilam needs: No travel history: recent (domestic only) seatbelt use: always helmet use: Yes (while roller blading) water heater temp set < 120 deg: Yes working smoke detector in home: Yes fire extinguisher in home: Yes carbon monox detector in home: Yes firearms in home: Yes firearms unloaded and locked: Yes do you feel safe at home: Yes Smoking Status: Current some day smoker (trying to quit) Tobacco: How many years used: 5 (3 years cigarettes, 2 years vaping) alcohol intake: current substance use type: marijuana (smokes MJ) during the past year weight has: decreased > 10 lbs (poor appetite from Adderall ) well-balanced diet: daily or most days daily servings fruits/ve-4 caffeine: Yes (cutting down, aware ) 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
== END 2022-09-03 12:55 | disposition home or self-care (01) ==
LOC: LABOR 11:20 → OB 09-10 08:14
PROVIDERS: PCP Family Medicine; Referring Provider Obstetrics & Gynecology; Visit Provider Obstetrics & Gynecology
DX: O30.043 Twin pregnancy, dichorionic/diamniotic, third trimester (principal); Z3A.32 32 weeks gestation of pregnancy
CPT/HCPCS: 59025; 59050; 76815; G0378; G0379

== ENCOUNTER 2022-09-11 10:54 | Outpatient (CLI) | payer OTHER, MEDICAID, SELFPAY ==
[2020-06-17 21:13] VITALS: BMI 30.2
== END 2022-09-11 11:50 | disposition home or self-care (01) ==
LOC: LABOR 11:00 → OB 09-13 13:09
PROVIDERS: PCP Family Medicine; Referring Provider Obstetrics & Gynecology; Visit Provider Obstetrics & Gynecology
DX: O30.003 Twin pregnancy, unspecified number of placenta and unspecified number of amniotic sacs, third trimester (principal); Z3A.33 33 weeks gestation of pregnancy
CPT/HCPCS: 59025; G0378; G0379

== ENCOUNTER 2022-09-17 10:53 | Outpatient (CLI) | payer OTHER, MEDICAID, SELFPAY ==
[2020-06-17 21:13] VITALS: BMI 30.2
--- NOTE | 2022-09-17 11:42 | PM.OBTRLD ---
Visit Information Visit Information Date of evaluation: 09/17/22 Primary OB Provider: Liyah Lr On-call OB Provider: Sofi Urbano Reason for Evaluation: Yes non-stress test non-stress test reason: other (Twins at 34 weeks) Vital Signs Vital Signs: Blood pressure 118/58, pulse 118, temperature 36.6? [facility] Medical History (Updated 09/17/22 @ 11:44 by Sofi Urbano MD) Acne (~2015) ADHD (~2005) Anxiety (~2016) Asthma History of ectopic History of recurrent miscarriages Infertility (~2019) Irregular menstrual cycle (~2016) Ovarian cyst (~2016) Painful menstrual periods (~2016) PCOS (polycystic ovarian syndrome) (~2016) Posterior cervical lymphadenopathy PTSD (post-traumatic stress disorder) (~2016) Surgical History (Updated 02/27/22 @ 08:13 by Judith Ayon, RN) Anesthesia H/O unilateral salpingectomy (~2019) History of dilatation and curettage (~2019) S/P T&A (status post tonsillectomy and adenoidectomy) (~2014) Status post ectopic Status post wisdom tooth extraction (~2011) Family History (Updated 02/27/22 @ 08:18 by Judith Ayon, RN) Grandfather Skin cancer Hypertension Grandmother Diabetes mellitus History of heart disease Hypertension H/O MTHFR mutation Breast cancer Grandmother Skin cancer Uterine fibroid Mother Fibromyalgia Anxiety Father Bipolar disorder Social History marital status: unmarried,living together number of children: 1 (stepson) household members: significant other and children lives independently: Yes housing: other (mobile home) pets and animals: Yes (1 dog, 1 kitten, 2 lizards and a hampster ) education level: college (some college) occupational status: employed (freelance housekeeping) and student current occupational exposures/hazards: No special nilam needs: No travel history: recent (domestic only) seatbelt use: always helmet use: Yes (while roller blading) water heater temp set < 120 deg: Yes working smoke detector in home: Yes fire extinguisher in home: Yes carbon monox detector in home: Yes firearms in home: Yes firearms unloaded and locked: Yes do you feel safe at home: Yes Smoking Status: Current some day smoker (trying to quit) Tobacco: How many years used: 5 (3 years cigarettes, 2 years vaping) alcohol intake: current substance use type: marijuana (smokes MJ) during the past year weight has: decreased > 10 lbs (poor appetite from Adderall ) well-balanced diet: daily or most days daily servings fruits/ve-4 caffeine: Yes (cutting down, aware ) 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 Keep routine OB visit and weekly nonstress test. OB Disposition: home
== END 2022-09-17 11:44 | disposition home or self-care (01) ==
LOC: LABOR 11:27 → OB 09-20 07:00
PROVIDERS: PCP Family Medicine; Referring Provider Specialist; Visit Provider Specialist
DX: O30.043 Twin pregnancy, dichorionic/diamniotic, third trimester (principal); Z3A.34 34 weeks gestation of pregnancy
CPT/HCPCS: 59025; G0378; G0379

== ENCOUNTER 2022-09-24 16:01 | Outpatient (CLI) | payer OTHER, MEDICAID, SELFPAY ==
[2020-06-17 21:13] VITALS: BMI 30.2
--- NOTE | 2022-09-24 16:38 | PM.OBTRLD ---
Visit Information Visit Information Date of evaluation: 09/24/22 Primary OB Provider: Liyah Lr On-call OB Provider: Sofi Urbano Reason for Evaluation: Yes non-stress test non-stress test reason: other (Twins) [facility] Medical History (Updated 09/24/22 @ 16:40 by Sofi Urbano MD) Acne (~2015) ADHD (~2005) Anxiety (~2016) Asthma History of ectopic History of recurrent miscarriages Infertility (~2019) Irregular menstrual cycle (~2016) Ovarian cyst (~2016) Painful menstrual periods (~2016) PCOS (polycystic ovarian syndrome) (~2016) Posterior cervical lymphadenopathy PTSD (post-traumatic stress disorder) (~2016) Surgical History (Updated 02/27/22 @ 08:13 by Judith Ayon, RN) Anesthesia H/O unilateral salpingectomy (~2019) History of dilatation and curettage (~2019) S/P T&A (status post tonsillectomy and adenoidectomy) (~2014) Status post ectopic Status post wisdom tooth extraction (~2011) Family History (Updated 02/27/22 @ 08:18 by Judith Ayon, RN) Grandfather Skin cancer Hypertension Grandmother Diabetes mellitus History of heart disease Hypertension H/O MTHFR mutation Breast cancer Grandmother Skin cancer Uterine fibroid Mother Fibromyalgia Anxiety Father Bipolar disorder Social History marital status: unmarried,living together number of children: 1 (stepson) household members: significant other and children lives independently: Yes housing: other (mobile home) pets and animals: Yes (1 dog, 1 kitten, 2 lizards and a hampster ) education level: college (some college) occupational status: employed (freelance housekeeping) and student current occupational exposures/hazards: No special nilam needs: No travel history: recent (domestic only) seatbelt use: always helmet use: Yes (while roller blading) water heater temp set < 120 deg: Yes working smoke detector in home: Yes fire extinguisher in home: Yes carbon monox detector in home: Yes firearms in home: Yes firearms unloaded and locked: Yes do you feel safe at home: Yes Smoking Status: Current some day smoker (trying to quit) Tobacco: How many years used: 5 (3 years cigarettes, 2 years vaping) alcohol intake: current substance use type: marijuana (smokes MJ) during the past year weight has: decreased > 10 lbs (poor appetite from Adderall ) well-balanced diet: daily or most days daily servings fruits/ve-4 caffeine: Yes (cutting down, aware ) 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 Evaluation Evaluation Baseline heart rate: 140 (Both) Variability: Moderate (11-25) (Both) monitor accelerations: Present (Both) Monitor Decelerations: Absent (Both) Diagnosis, Plan/Disposition Final Diagnosis (1) Dichorionic diamniotic twin gestation: Status: Acute (2) 35 weeks gestation of : Status: Acute Plan/Disposition Plan: Reactive nonstress test for twins. Follow-up weekly nonstress test and OB visit OB Disposition: home
== END 2022-09-24 16:45 | disposition home or self-care (01) ==
LOC: LABOR 16:03 → OB 09-27 16:56
PROVIDERS: PCP Family Medicine; Referring Provider Specialist; Visit Provider Specialist
DX: O30.043 Twin pregnancy, dichorionic/diamniotic, third trimester (principal); Z3A.35 35 weeks gestation of pregnancy
CPT/HCPCS: 59025; G0378; G0379

== ENCOUNTER 2022-10-01 13:41 | Outpatient (CLI) | payer OTHER, MEDICAID, SELFPAY ==
[2020-06-17 21:13] VITALS: BMI 30.2
== END 2022-10-01 14:51 | disposition home or self-care (01) ==
LOC: LABOR 13:53 → OB 10-08 08:49
PROVIDERS: PCP Family Medicine; Referring Provider Obstetrics & Gynecology; Visit Provider Obstetrics & Gynecology
DX: O30.003 Twin pregnancy, unspecified number of placenta and unspecified number of amniotic sacs, third trimester (principal); O26.893 Other specified pregnancy related conditions, third trimester; D68.9 Coagulation defect, unspecified; Z3A.36 36 weeks gestation of pregnancy
CPT/HCPCS: 59025; G0378; G0379

== ENCOUNTER → 2022-10-03 14:48 | Outpatient (CLI) | payer OTHER, MEDICAID, SELFPAY ==
[2020-06-17 21:13] VITALS: BMI 30.2
[2022-10-04 15:00] LABS: Strep Grp B PCR NEG for Grp B Strep
== END ==
PROVIDERS: PCP Family Medicine; Visit Provider Obstetrics & Gynecology
DX: Z34.83 Encounter for supervision of other normal pregnancy, third trimester (principal); Z3A.36 36 weeks gestation of pregnancy
CPT/HCPCS: 87653

== ENCOUNTER 2022-10-08 11:06 | Outpatient (CLI) | payer OTHER, MEDICAID, SELFPAY ==
[2020-06-17 21:13] VITALS: BMI 30.2
== END 2022-10-08 12:17 | disposition home or self-care (01) ==
LOC: LABOR 11:09 → OB 10-15 15:56
PROVIDERS: PCP Family Medicine; Referring Provider Obstetrics & Gynecology; Visit Provider Obstetrics & Gynecology
DX: O47.1 False labor at or after 37 completed weeks of gestation (principal); O30.003 Twin pregnancy, unspecified number of placenta and unspecified number of amniotic sacs, third trimester; Z3A.37 37 weeks gestation of pregnancy
CPT/HCPCS: 59025; G0378; G0379

== ENCOUNTER 2022-10-11 05:27 | Inpatient (IN) | payer OTHER, MEDICAID, SELFPAY ==
[2020-06-17 21:13] VITALS: BMI 30.2
[2022-10-11 06:53] LABS: Add Manual Diff / Slide Review NO; Basophils Absolute Auto 100 /uL (0-100); Basophils Percent Auto 0.5 % (0-2); Eosinophils Absolute Auto 300 /uL (0-450); Eosinophils Percent Auto 1.5 % (2-4); Hematocrit 36.4 % (36-46); Hemoglobin 12.5 g/dL (12.0-16.0); Lymphocytes Absolute Auto 2100 /uL (1100-4500); Lymphocytes Percent Auto 12.8 % (25-40); Mean Corpuscular HGB Conc 34.3 % (30-36); Mean Corpuscular Hemoglobin 31.9 PG (26-34); Monocytes Absolute Auto 1200 /uL (0-900); Monocytes Percent Auto 7.2 % (3-14); Neutrophils Absolute Auto 12700 /uL (1500-7000); Platelet Count 304 X10^3/uL (150-400); Red Blood Cell Count 3.92 X10^6/uL (4.0-5.2); Red Cell Distribution Width 13.8 % (11.6-14.8); White Blood Cell Count 16.3 X10^3/uL (4.5-11.0)
[2022-10-11] MEDS: LACTATED RINGERS 1,000 ML 999 ML IV (07:19)
--- NOTE | 2022-10-11 07:37 | P.HPOB_ITS ---
OB HPI Date/Time Date of admission: 10/11/22 Date Patient Seen: 10/11/22 Time Patient Seen: 07:37 History of Present Condition Chief complaint: Section MARLEE Calculator Estimated Delivery Date Method Current WG Current Estimate 10/29/22 LMP (Certain) 37w 3d Other Estimates 10/30/22 Ultrasound #1 37w 2d # 2 Estimated Gestational Age (weeks): 37+3 : 5 Para: 0 care: good care, initiated at week #, number of visits and pounds weight gain Dating criteria OB: LMP confirmed by 1st trimester US Ultrasounds: normal 1st trimester US and normal mid trimester US Obstetrical complications: other (twins) Medical complications OB: none Indications Operative indications ( section): multiple gestation (twins) Preadmission Labs Last OB Lab Results: Blood Type B Positive 10/11/22 06:35 Antibody Screen Negative 10/11/22 06:35 Hematocrit 36.4 % (36-46) 10/11/22 06:35 Hemoglobin 12.5 g/dL (12.0-16.0) 10/11/22 06:35 Hepatitis B Surface Antigen Negative s/c (NEGATIVE) 05/14/22 14 :37 Hepatitis C Antibody Negative s/c (NEGATIVE) 05/14/22 14:37 Rubella Antibody 18.0 IU/mL (>15) 05/14/22 14:37 Varicella-Zoster IgG Antibody 531 index (Immune >165) 05/14/22 14:37 Glucose 1 Hour 98 mg/dL (76-139) 07/28/22 12:39 Group B Streptococcus (PCR) Neg for grp b strep 10/03/22 14:48 -: Chlamydia screen: negative, Gonorrhea screen: negative and Urine: negative Genetic Screens: Cell-free DNA: Normal and Alpha-fetoprotein: Normal External Labs -: Urine: negative Prior (ies) Past Pregnancies Del. Date GA/Weeks Labor Lgth Wt Sex Route Outcome Anesthesia Place Delv Breastfeed Preg Comp Name 06/19/20 11 ectopic ruptured tube 08/29/20 6 spontaneous 10/29/20 4 spontaneous 07/17/21 4 spontaneous Evaluation Evaluation Baseline heart rate: 135 Variability: Moderate (11-25) monitor accelerations: Present Monitor Decelerations: Absent Status: Category l PFSH Medical History (Updated 09/27/22 @ 22:00 by Liyah Lr MD) Acne (~2015) ADHD (~2005) Anxiety (~2016) Asthma History of ectopic History of recurrent miscarriages Infertility (~2019) Irregular menstrual cycle (~2016) Ovarian cyst (~2016) Painful menstrual periods (~2016) PCOS (polycystic ovarian syndrome) (~2016) Posterior cervical lymphadenopathy PTSD (post-traumatic stress disorder) (~2016) Surgical History (Updated 02/27/22 @ 08:13 by Judith Ayon RN) Anesthesia H/O unilateral salpingectomy (~2019) History of dilatation and curettage (~2019) S/P T&A (status post tonsillectomy and adenoidectomy) (~2014) Status post ectopic Status post wisdom tooth extraction (~2011) Family History (Updated 02/27/22 @ 08:18 by Judith Ayon RN) Grandfather Skin cancer Hypertension Grandmother Diabetes mellitus History of heart disease Hypertension H/O MTHFR mutation Breast cancer Grandmother Skin cancer Uterine fibroid Mother Fibromyalgia Anxiety Father Bipolar disorder Social History marital status: unmarried,living together number of children: 1 (stepson) household members: significant other and children lives independently: Yes housing: other (mobile home) pets and animals: Yes (1 dog, 1 kitten, 2 lizards and a hampster ) education level: college (some college) 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 current occupational exposures/hazards: No special nilam needs: No travel history: recent (domestic only) seatbelt use: always helmet use: Yes (while roller blading) water heater temp set < 120 deg: Yes working smoke detector in home: Yes fire extinguisher in home: Yes carbon monox detector in home: Yes firearms in home: Yes firearms unloaded and locked: Yes do you feel safe at home: Yes Smoking Status: Current some day smoker (trying to quit) Tobacco: How many years used: 5 (3 years cigarettes, 2 years vaping) alcohol intake: current substance use type: marijuana (smokes MJ) during the past year weight has: decreased > 10 lbs (poor appetite from Adderall ) well-balanced diet: daily or most days daily servings fruits/ve-4 caffeine: Yes (cutting down, aware ) 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)) Meds Home Medications and Allergies Home Medications Medication Instructions Recorded Confirmed Type fluticasone propionate 220 See Rx Instructions .Route 10/09/21 10/03/22 Rx mcg/actuation HFA aerosol inhaler .COMPLEX #12 grams (Flovent HFA) folic acid 1 mg tablet 1 mg PO DAILY 02/27/22 10/03/22 History prenat.vits,ameena,vqx-nfrx-jxqlf 1 tab PO DAILY 02/27/22 10/03/22 History valacyclovir 500 mg tablet 500 mg PO BID #10 tabs 06/26/22 10/03/22 Rx (Valtrex) progesterone micronized 200 mg See Rx Instructions .Route 07/09/22 10/11/22 Rx capsule .COMPLEX #30 caps ondansetron 4 mg disintegrating 4 mg PO Q8H nausea #20 tabs 08/09/22 10/03/22 Rx tablet methylphenidate HCl 36 mg 36 mg PO DAILY #30 tabs 08/20/22 10/03/22 Rx tablet,extended release 24 hr (Concerta) syringe with needle, safety 3 mL #25 ea 09/26/22 10/03/22 Rx 22 gauge x 1 (Monoject Safety Syringes) heparin (porcine) 10,000 unit/mL 5,000 unit (0.5 mL) SUBCUT BID 10/02/22 10/11/22 Rx injection solution Prevent blood clot #25 mL Allergies Allergy/AdvReac Type Severity Reaction Status Date / Time cefaclor [From [facility]] AdvReac hallucinati Verified 10/03/22 13:10 ons OB Exam Narrative Exam Narrative: Generally: Patient is sitting up in bed, no acute distress Lungs: Clear to auscultation bilaterally Cardiovascular: Regular rate and rhythm Fundal height: 42 cm Extremities: 1+ edema Objective Labs 10/11/22 06:35 Labs: Laboratory Results - last 24 hr 10/11/22 06:35 WBC 16.3 H RBC 3.92 L Hgb 12.5 Hct 36.4 MCV 93.0 MCH 31.9 MCHC 34.3 RDW 13.8 Plt Count 304 Neut % (Auto) 78.0 H Lymph % (Auto) 12.8 L [place] % (Auto) 7.2 Eos % (Auto) 1.5 L Baso % (Auto) 0.5 Neut # (Auto) 16442 H Lymph # (Auto) 2100 [place] # (Auto) 1200 H Eos # (Auto) 300 Baso # (Auto) 100 Assessment and Plan Assessment and Plan Assessment and Plan narrative: Assessment: 26-year-old 5 para 0 at 37 and 3/7 weeks' gestation with dichorionic/diamniotic twins Plan: Primary low-transverse section The risks, benefits, and alternatives to the procedure were explained to the patient. The risks including bleeding, infection, injury to the bowel, bladder, or ureters. She understands these risks and agrees to proceed. A full par Q was held and consent form was signed. Time Spent with Patient Total time spent with greater than 50% in coordination of care (as documented) at patient's floor/unit and/or counseling patient:: 15-24 minutes
[2022-10-11] MEDS: ONDANSETRON 4 MG/2 ML INJ IV (07:42)
[2022-10-11] MEDS: METOCLOPRAMIDE 10 MG/2 ML INJ IV (07:42)
[2022-10-11] MEDS: CITRIC ACID/SODIUM CITRATE 15 ML SOLUTION 30 ML PO (07:42)
--- NOTE | 2022-10-11 07:46 | PM.PREOP ---
Pre-operative Note COVID-19 Criteria for continued procedure: Non-surgical alternatives not available or appropriate per current SOC Interval Note History & Physical reviewed/Exam performed by Physician: Yes Changes to H&P: No H&P completed within 30 days and has changed as indicated here:: 10/11/22
[2022-10-11] MEDS: CEFAZOLIN 2 GM/100 ML PREMIX 100 ML IV (08:06)
[2022-10-11] MEDS: ACETAMINOPHEN IV 1,000 MG/100 ML VIAL 400 MG IV (08:14)
--- NOTE | 2022-10-11 08:24 | SUR.OPER ---
Supine on padded OR bed, head on pillow, arms secured on padded arm boards at <90 degrees abduction, legs uncrossed, safety belt at thigh, tape over blanket over lower legs.
[2022-10-11 09:18] VITALS: BP 105/42; PULSE 85; RESP 22; TEMP 36.9; O2SAT 99
--- NOTE | 2022-10-11 09:22 | SUR.OPER ---
FHT BABY A 135, FHT BABY B 120 PRIOR TO INCISION. LIVE BAB
[2022-10-11 09:23] VITALS: BP 106/74; PULSE 72; RESP 17; TEMP 36.9; O2SAT 98
--- NOTE | 2022-10-11 09:23 | SUR.OPER ---
FHT BABY A 135, FHT BABY B 120 PRIOR TO INCISION. LIVE BABY BOY A TOB @ 0827, LIVE BABY BOY B TOB @ 0830. PLACENTA DELIVERED @ 0875. CORD BLOOD, PLACENTA AND BABIES WENT WITH OB RN.
[2022-10-11 09:28] VITALS: BP 112/56; PULSE 89; RESP 15; TEMP 36.9; O2SAT 99
[2022-10-11 09:35] VITALS: BP 110/70; PULSE 78; RESP 17; TEMP 36.9; O2SAT 98
--- NOTE | 2022-10-11 09:44 | PM.OBCS.1 ---
Operative Date/Time/Diagnoses Date of procedure: 10/11/22 Time of procedure: 09:44 Pre-op diagnosis: Dichorionic/diamniotic twin gestation 37-,3/7 weeks gestation Post-op diagnosis: same Procedure & Clinicians Procedure: Primary low-transverse section Same procedure as scheduled: Yes Indications: 37-,3/7 weeks gestation Dichorionic/diamniotic twins Surgeon: Liyah Lr Click Yes if Unassisted: No Social Sciences Instructor: Mandi Call Reason for Social Sciences Instructor: The head start assistant teacher was necessary to retract upon entry into the abdomen and uterus. She assisted with fundal pressure with delivery of both infants. She assisted with closure with retraction and clipping of suture. She closed the contralateral fascia. Anesthesia Type: Spinal (With Duramorph) Operative Notes Findings: Baby A in the vertex presentation on the right side Baby B in the breech presentation on the left side Two placentas Normal ovaries Normal left tube Closure Type: primary Specimen(s): cord blood and placenta Intraoperative meds administered: Duramorph, Ketorolac and Pitocin Applied: Catheter (To continuous drainage) Estimated Blood Loss (mL): 400 Blood products transfused: none Procedure in detail: The patient was taken to the operating room where she was placed in the seated position. Spinal anesthesia with Duramorph was administered. She was then placed in the dorsal supine position with a leftward tilt. She was prepped and draped in the usual sterile fashion. A timeout was performed. After spinal analgesia was found to be adequate, a Pfannenstiel skin incision was made 2 fingerbreadths above the pubic symphysis and carried through to the underlying layer fascia. The fascia was nicked in the midline, and the incision extended bilaterally with the García scissors. The superior aspect of the fascial incision was grasped with a [place] clamps, elevated, and the underlying rectus muscles dissected off sharply and bluntly. Attention was then turned to the inferior aspect of this incision which in a similar fashion was grasped with a [place] clamps, elevated, and the underlying rectus muscles dissected off sharply and bluntly. The rectus muscles were in the midline. The peritoneum was identified, grasped between 2 hemostats, and entered sharply with the Metzenbaum scissors. This incision was extended superiorly and inferiorly with good visualization of the bladder. The bladder blade was inserted. The vesicouterine peritoneum was identified, grasped with the pickup, and entered sharply with the Metzenbaum scissors. This incision was extended bilaterally, and the bladder flap was created digitally. The bladder blade was reinserted. The lower uterine segment was incised in a transverse fashion with the scalpel. Upon entering the amniotic sac there was a moderate amount of clear amniotic fluid. Baby A's head was delivered without difficulty. The nose and mouth were suctioned with bulb suction. The remainder of the body delivered without difficulty. The cord was double clamped and cut after one minute. The was handed off to waiting RN and RT. Baby B was found to be in the breech presentation. The amniotic sac was incised. There was a large amount of clear amniotic fluid. The nose and mouth were bulb suctioned. The cord was double clamped and cut and the infant was handed off to RN and RT. The placenta's were delivered manually. The uterus was cleared of all clots and debris. The uterine incision was repaired with #1 chromic in a running interlocking fashion, and a second layer the same suture was used for an imbricating layer. Hemostasis was achieved. The ovaries were examined and were found to be normal. The left tube was normal. The gutters were cleared of all clots and debris. The bladder flap was reapproximated using 2-0 Vicryl in a running fashion. The parietal peritoneum was closed using 2-0 Vicryl in a running fashion. The fascia was reapproximated using 0 Vicryl in a running fashion. The subcutaneous layer was copiously irrigated with warm normal saline. 5 simple interrupted sutures of 3-0 Vicryl were placed to reapproximate the subcutaneous layer. The skin was closed with 4-0 Monocryl in a subcuticular fashion. Steri-Strips were placed. An Aquacel dressing was placed. The uterus was expressed of a small amount of old blood. Sponge, lap, and instrument counts were correct x-2. The patient tolerated the procedure well, and was taken to PACU in stable condition. Complications: none Johnson Baby 1: Gender: Male Presentation: vertex Placental Delivery Description: Expressed (After second baby delivered) Cord Vessel Description: 3 Vessels, Nuchal Cord (X1), Reduced, Clamped/Cut and Around Body x1 (Around leg) score (1 min): 9 score (5 min): 9 weight: 5 lb 7 oz 2: Gender: Male Presentation: breech Details: [place] Placental Delivery Description: Expressed (After second baby delivered) Cord Vessel Description: 3 Vessels score (1 min): 6 score (5 min): 7 score (10 min): 8 weight: 5 lb 7.6 oz Post-operative Condition: stable Disposition: PACU Aftercare: routine postop
[2022-10-11] MEDS: KETOROLAC 30 MG/ML VIAL IV ×2 (15:20→21:10)
[2022-10-11] MEDS: ACETAMINOPHEN 325 MG TABLET 650 MG PO ×2 (15:20→21:08)
[2022-10-11 17:20] VITALS: BP 119/73
[2022-10-11] MEDS: LANOLIN OINT 7 GM 1 APPLIC TOP (21:11)
[2022-10-11] MEDS: OXYCODONE IR 5 MG TABLET PO (23:21)
[2022-10-12] MEDS: KETOROLAC 30 MG/ML VIAL IV (02:55)
[2022-10-12] MEDS: ACETAMINOPHEN 325 MG TABLET 650 MG PO ×4 (02:56→21:52)
[2022-10-12] MEDS: OXYCODONE IR 5 MG TABLET PO ×5 (05:12→21:52)
[2022-10-12 06:38] LABS: Hematocrit 29.3 % (36-46); Hemoglobin 10.1 g/dL (12.0-16.0)
[2022-10-12] MEDS: DOCUSATE 100 MG CAPSULE PO (09:03)
[2022-10-12] MEDS: PRENATAL VIT,CALC/IRON/FOLIC 1 TABLET 1 TAB PO (09:03)
[2022-10-12] MEDS: IBUPROFEN 600 MG TABLET PO ×3 (09:03→21:51)
--- NOTE | 2022-10-12 15:47 | PM.OBPN.1 ---
Subjective - OB Subjective Patient comments: no complaints, pain well controlled, tolerating diet and flatus present baby status: doing well and nursing well [place] feeding status: exclusively breast feeding Date Patient Seen: 10/12/22 Time Patient Seen: 15:48 Interval history: Voided without the catheter. Tolerating diet. Ambulating. going well. Exam Vital Signs (past 8 hours): Oxygen Delivery Method Room Air Narrative Exam Narrative: Generally: Sitting up in bed, holding one baby. Fundus: Firm U/-1 Incision: C/D/I with Aquacel Ext: 1+ edema Objective Labs 10/12/22 06:15 Labs: Laboratory Results - last 24 hr 10/12/22 06:15 Hgb 10.1 L Hct 29.3 L Assessment & Plan Plan day: 1 plan OB: routine postop care Time Spent With Patient Time: Total time spent is greater than 50% in coordination of care (as documented) at patient's floor/unit and/or counseling patient: Time with patient: 15-24 minutes
[2022-10-12] MEDS: MAGNESIUM HYDROXIDE 30 ML UDC PO (21:53)
[2022-10-13] MEDS: OXYCODONE IR 5 MG TABLET PO ×4 (04:56→21:30)
[2022-10-13] MEDS: ACETAMINOPHEN 325 MG TABLET 650 MG PO ×3 (04:56→19:29)
[2022-10-13] MEDS: IBUPROFEN 600 MG TABLET PO ×4 (04:56→23:59)
[2022-10-13] MEDS: DOCUSATE 100 MG CAPSULE PO (09:46)
[2022-10-13] MEDS: PRENATAL VIT,CALC/IRON/FOLIC 1 TABLET 1 TAB PO (09:46)
--- NOTE | 2022-10-13 11:26 | PM.OBPN.1 ---
Subjective - OB Subjective Patient comments: no complaints, incisional pain (Burning), tolerating diet and flatus present baby status: nursing well and other (Both babies have lost 10% of their weight) feeding status: pumping and bottle feeding Date Patient Seen: 10/13/22 Time Patient Seen: 11:27 Interval history: Postop day # 2 status post primary section for twins. Babies have lost 10% or more of the weight. Pediatrics would like them to stay another day. Mom is , pumping, and supplementing with a little bit of formula now. Her pain is well controlled. She does have some burning with the incision. She reports some mucousy bloody drainage from the vagina. She is ambulating. She has showered. Exam Vital Signs (past 8 hours): Oxygen Delivery Method Room Air Narrative Exam Narrative: Generally: Sitting up in bed, pumping, tearful due to staying 1 more day. Lungs: Clear to auscultation bilaterally Cardiovascular: Regular rate and rhythm Fundus: Firm at U -1 Incision: Clean dry and intact with Aquacel dressing Extremities: 1+ edema, negative [place] Objective Labs 10/12/22 06:15 Assessment & Plan Plan day: 2 plan OB: routine postop care Comments: Begin supplementation with formula Anticipate discharge October 14, 2022 Time Spent With Patient Time: Total time spent is greater than 50% in coordination of care (as documented) at patient's floor/unit and/or counseling patient: Time with patient: 15-24 minutes
[2022-10-13] MEDS: MAGNESIUM HYDROXIDE 30 ML UDC PO (21:30)
[2022-10-14] MEDS: ACETAMINOPHEN 325 MG TABLET 650 MG PO ×3 (01:36→07:57)
[2022-10-14] MEDS: OXYCODONE IR 5 MG TABLET PO ×3 (03:32→12:18)
[2022-10-14] MEDS: IBUPROFEN 600 MG TABLET PO ×2 (05:44→12:16)
[2022-10-14] MEDS: DOCUSATE 100 MG CAPSULE PO (07:57)
[2022-10-14] MEDS: PRENATAL VIT,CALC/IRON/FOLIC 1 TABLET 1 TAB PO (07:57)
--- NOTE | 2022-10-14 11:19 | PM.OBDS.1 ---
Discharge Providers Provider Date of admission: 10/11/22 05:27 Discharge Date: 10/14/22 Primary care physician: Dayton Ashley MD Consults: 10/11/22 10:08 Consult to Dermatologist Managing Partner Routine Comment: Discharge provider: Liyah Lr MD Summary Hospital Course Date Patient Seen: 10/14/22 Time Patient Seen: 11:19 Diagnoses: 37-,3/7 weeks gestation Dichorionic/diamniotic twins Primary low-transverse section Hospital Course: Patient is a 26-year-old 5 para [id number] who presented on October 11, 2022 for a scheduled primary low-transverse section for dichorionic/diamniotic twins at 37-,3/7 weeks gestation. She underwent this procedure without complication. On the same day of surgery patient showered. On postop day #1, the Dykes catheter was removed, and she was able to void spontaneously. She is tolerating a diet. She is ambulating independently. Her pain is well controlled. is going well. Peripartum Data Delivery Method: Section Procedures: Spinal anesthesia Primary low-transverse section complications: none 1: Gender: Male Disposition of : home 2: Gender: Male Disposition of : home Status at Discharge Cognitive/behavioral status at discharge: oriented Functional status at discharge: independent ambulation Overall status at discharge: patient is progressing back to baseline Time Spent with Patient Time attestation: Total time spent providing and/or coordinating discharge services: Time spent: Less than 30 minutes Objective Labs 10/12/22 06:15 Exam Vital Signs (past 8 hours): Oxygen Delivery Method Room Air Narrative Exam Narrative: Generally: Patient is sitting up in chair, nursing 1 of the infants, no acute distress Lungs: Clear to auscultation bilaterally Cardiovascular: Regular rate and rhythm Fundus: Firm at U -1 Incision: Clean dry and intact with Aquacel dressing Extremities: 1+ edema, negative Homans Discharge Plan Discharge Plan Patient Disposition: Home Provider Discharge Comment: Call with fever, chills, redness or drainage around the incision, or bleeding vaginally more than a pad in an hour Tylenol 650 mg every 6 hours Ibuprofen 600 mg every 6 hours Stool softeners twice a day until bowel movements returned to normal Discharge orders & Medications Prescriptions: New ibuprofen 600 mg tablet 600 mg PO Q6H PRN (Reason: cramping or pain) Qty: 30 3RF oxycodone 5 mg tablet 5 mg PO Q4H PRN (Reason: pain) Qty: 20 0RF docusate sodium [Colace] 100 mg capsule 100 mg PO BID Qty: 30 0RF Continued Flovent HFA 220 mcg/actuation HFA aerosol inhaler See Rx Instructions .ROUTE .COMPLEX Qty: 12 3RF Dose Instruction: inhale 2 puffs by mouth and INTO THE LUNGS twice a day Rx Instructions: inhale 2 puffs by mouth and INTO THE LUNGS twice a day ondansetron 4 mg tablet,disintegrating 4 mg PO Q8H Qty: 20 2RF methylphenidate HCl [Concerta] 36 mg tablet extended release 24hr 36 mg PO DAILY Qty: 30 0RF prenat.vits,ameena,inh-gaxv-zxuek Tablet 1 tab PO DAILY Discontinued valacyclovir [Valtrex] 500 mg tablet 500 mg PO BID Qty: 10 0RF progesterone micronized 200 mg capsule See Rx Instructions .ROUTE .COMPLEX Qty: 30 4RF Dose Instruction: take 1 capsule by mouth at bedtime Rx Instructions: take 1 capsule by mouth at bedtime heparin (porcine) 10,000 unit/mL solution 5,000 unit SUBCUT BID Qty: 25 0RF folic acid 1 mg tablet 1 mg PO DAILY No Action (DME) syringe with needle, safety [Monoject Safety Syringes] 3 mL 22 gauge x 1 syringe See Rx Instructions .Route Qty: 25 0RF Rx Instructions: As directed Follow up/Referrals: Liyah Lr MD [Physician] - 1 Week (1 week and 6 week needed) Diet/Activity/Treatments Diet: Regular Activity: No heavy lifting Nothing in the vagina for 6 weeks Skin/Wound/Dressing Care Report to your healthcare provider any signs of infection, such as:: chills, fever, increased pain, unusual drainage and unusual redness Dressing: Do not remove Visit Report/Discharge Packet Instructions: DI for , DI for Prescription Opioid Use Stand Alone Forms: Patient Portal/API, Stroke Signs & Symptoms Discharge Data Primary Care Provider: Dayton Ashley
[2022-10-14 11:28] VITALS: BP 111/70; PULSE 90; RESP 18; TEMP 36.6
== END 2022-10-14 12:45 | disposition home or self-care (01) | DRG 540 ==
PROVIDERS: Admitting Provider Obstetrics & Gynecology; PCP Family Medicine; Referring Provider Obstetrics & Gynecology; Visit Provider Obstetrics & Gynecology
PROC: 10D00Z1 Extraction of Products of Conception, Low, Open Approach (ICD-10-PCS; CPT 59514; principal; 2022-10-11 07:45)
DX: O30.043 Twin pregnancy, dichorionic/diamniotic, third trimester (principal); Z3A.37 37 weeks gestation of pregnancy; Z37.2 Twins, both liveborn
CPT/HCPCS: 36415; 59050; 59514; 85014; 85018; 85025; 86850; 86900; 86901; J0131; J0690; J1885; J2250; J2274; J2405; J2590; J2704; J2765

== ENCOUNTER → 2023-01-21 13:32 | Outpatient (CLI) | payer OTHER, MEDICAID, SELFPAY ==
[2020-06-17 21:13] VITALS: BMI 30.2
[2023-01-21 15:13] LABS: Add Manual Diff / Slide Review NO; Basophils Absolute Auto 0 /uL (0-100); Basophils Percent Auto 0.3 % (0-2); Eosinophils Absolute Auto 300 /uL (0-450); Eosinophils Percent Auto 2.7 % (2-4); Hematocrit 41.3 % (36-46); Hemoglobin 14.2 g/dL (12.0-16.0); Lymphocytes Absolute Auto 2400 /uL (1100-4500); Lymphocytes Percent Auto 25.9 % (25-40); Mean Corpuscular HGB Conc 34.3 % (30-36); Mean Corpuscular Hemoglobin 30.5 PG (26-34); Mean Corpuscular Volume 88.7 fL (80-100); Monocytes Absolute Auto 500 /uL (0-900); Monocytes Percent Auto 5.8 % (3-14); Neutrophils Absolute Auto 6100 /uL (1500-7000); Neutrophils Percent Auto 65.3 % (50-75); Platelet Count 374 X10^3/uL (150-400); Red Blood Cell Count 4.66 X10^6/uL (4.0-5.2); Red Cell Distribution Width 12.9 % (11.6-14.8); White Blood Cell Count 9.4 X10^3/uL (4.5-11.0)
[2023-01-21 16:09] LABS: Alanine Aminotransferase 39 IU/L (<35); Albumin 4.4 g/dL (3.5-5.0); Albumin Globulin Ratio 1.6 (1.0-2.8); Alkaline Phosphatase 63 U/L (38-126); Aspartate Aminotransferase 32 IU/L (14-36); BUN Creatinine Ratio 12.3 (6-22); Bilirubin Total 0.3 mg/dL (0.2-1.3); Blood Urea Nitrogen 10 mg/dL (7-17); Calcium 9.1 mg/dL (8.4-10.2); Carbon Dioxide 29 mmol/L (22-32); Chloride 106 mmol/L (98-107); Estimated Glomerular Filt Rate > 60 mL/min (>60); Globulin 2.7 g/dL (1.7-4.1); Glucose 85 mg/dL (70-100); HEMOLYSIS < 15 (0-50); Sodium 141 mmol/L (137-145); Total Protein 7.1 g/dL (6.3-8.2)
== END ==
PROVIDERS: PCP Family Medicine; Referring Provider Family Medicine; Visit Provider Family Medicine
DX: E28.2 Polycystic ovarian syndrome (principal); F41.9 Anxiety disorder, unspecified; F90.9 Attention-deficit hyperactivity disorder, unspecified type; L74.9 Eccrine sweat disorder, unspecified
CPT/HCPCS: 36415; 80053; 84443; 85025